=== PATIENT | female | born 1955 | race Caucasian/White ===

== ENCOUNTER 2017-04-26 11:47 | Inpatient (IN) | payer OTHER ==
[~2017-04-26] VITALS: Ht 165.1 cm; Wt 90.0 kg
[2017-04-26] VITALS (8 sets, daily range): BP systolic 128–233; BP diastolic 60–114; PULSE 76–98; RESP 16–19; TEMP 98.2–98.7; O2SAT 94–99
[2017-04-26] MEDS ORDERED: hydrALAZINE HCL 20 MG/ML VIAL IV PUSH ONE (12:15)
[2017-04-26] MEDS ORDERED: ONDANSETRON HCL 4 MG/2 ML VIAL IV PUSH ONE (12:15)
[2017-04-26 12:26] LABS: AUTOMATED NEUTROPHIL # 3.1 TH/MM3 (1.8-7.7); BASOPHIL # 0.1 TH/MM3 (0-0.2); BASOPHIL % 0.8 % (0.0-2.0); EOSINOPHIL # 0.2 TH/MM3 (0-0.4); EOSINOPHIL % 2.3 % (0.0-4.0); HEMATOCRIT 41.1 % (35.0-46.0); HEMO FLAGS DIFF FINAL; LYMPH % 41.3 % (9.0-44.0); LYMPHOCYTE # 2.8 TH/MM3 (1.0-4.8); MEAN CELL VOLUME 89.3 FL (80.0-100.0); MEAN CORPUSCULAR HEMOGLOBIN 31.1 PG (27.0-34.0); MEAN CORPUSCULAR HGB CONC 34.9 % (32.0-36.0); MONO % 9.5 % (0.0-8.0); NEUT % 46.1 % (16.0-70.0); PLATELET COUNT 290 TH/MM3 (150-450); RED CELL DISTRIBUTION WIDTH 13.1 % (11.6-17.2); WHITE BLOOD COUNT 6.7 TH/MM3 (4.0-11.0)
[2017-04-26 12:36] LABS: APTT (PATIENT) 26.8 SEC (24.3-30.1); INTERNATIONAL NORMALIZED RATIO 0.9 RATIO; PROTHROMBIN TIME - PATIENT 10.2 SEC (9.8-11.6)
--- NOTE | 2017-04-26 12:45 | PD ---
HPI Chief Complaint: Headache Time Seen by Provider: 11:59 Travel History International Travel<30 days: No Contact w/Intl Traveler<30days: No Traveled to known affect area: No History of Present Illness HPI 61yo F with PMH of HTN and Jeanne's thyroiditis presents to the ED with c/o bilateral frontal headache, blurry vision and elevated blood pressure after argument 1.5 hours prior to ED arrival. Associated with nausea. Denies any focal weakness or numbness, chest pain, sob, vomiting, abdominal pain, fever, cough or trauma. Had one episode of migraine when she was . PFSH Past Medical History Hypertension: Yes Influenza Vaccination: Yes Menopausal: Yes Past Surgical History Cholecystectomy: Yes (1997) Tonsillectomy: Yes (1960) Social History Alcohol Use: Yes (glass of wine 3x/month) Tobacco Use: No Substance Use: No Allergies-Medications (Allergen,Severity, Reaction): Coded Allergies: Levaquin (Verified Allergy, Mild, 01/26/07) Reported Meds & Prescriptions Reported Meds & Active Scripts Active Review of Systems Except as stated in HPI: all other systems reviewed are Neg Physical Exam Narrative GENERAL: 61yo F in mild distress. SKIN: Focused skin assessment warm/dry. HEAD: Atraumatic. Normocephalic. EYES: Pupils equal and round at 4mm bilaterally. No scleral icterus. No injection or drainage. ENT: No nasal bleeding or discharge. Mucous membranes pink and moist. NECK: Trachea midline. No JVD. CARDIOVASCULAR: Regular rate and rhythm. No murmur appreciated. RESPIRATORY: No accessory muscle use. Clear to auscultation. Breath sounds equal bilaterally. GASTROINTESTINAL: Abdomen soft, non-tender, nondistended. No rebound tenderness or guarding. MUSCULOSKELETAL: No obvious deformities. No clubbing. No cyanosis. No edema. NEUROLOGICAL: Awake and alert. No obvious cranial nerve deficits. Motor grossly within normal limits. Normal speech. PSYCHIATRIC: Appropriate mood and affect; insight and judgment normal. Data Data Last Documented VS Vital Signs Date Time Temp Pulse Resp B/P Pulse Ox O2 Delivery O2 Flow Rate FiO2 04/26/17 12:33 78 188/63 04/26/17 12:21 18 95 Room Air 04/26/17 11:[address] Brain W/O Iv Contrast(Rout) (04/26/17 ) Complete Blood Count With Diff (04/26/17 12:10) Basic Metabolic Panel (Bmp) (04/26/17 12:10) Prothrombin Time / Inr (Pt) (04/26/17 12:10) Act Partial Throm Time (Ptt) (04/26/17 12:10) Hydralazine Inj (Apresoline Inj) (04/26/17 12:15) Ondansetron Inj (Zofran Inj) (04/26/17 12:15) Cta Brain W Iv Contrast W 3d (04/26/17 ) Levetiracetam 1000 Mg Inj (Keppra 1000 M (04/26/17 13:30) Admit Order (Ed Use Only) (04/26/17 13:46) Labs Laboratory Tests Test 04/26/17 12:13 White Blood Count 6.7 TH/MM3 Red Blood Count 4.60 MIL/MM3 Hemoglobin 14.3 GM/DL Hematocrit 41.1 % Mean Corpuscular Volume 89.3 FL Mean Corpuscular Hemoglobin 31.1 PG Mean Corpuscular Hemoglobin 34.9 % Concent Red Cell Distribution Width 13.1 % Platelet Count 290 TH/MM3 Mean Platelet Volume 8.5 FL Neutrophils (%) (Auto) 46.1 % Lymphocytes (%) (Auto) 41.3 % Monocytes (%) (Auto) 9.5 % Eosinophils (%) (Auto) 2.3 % Basophils (%) (Auto) 0.8 % Neutrophils # (Auto) 3.1 TH/MM3 Lymphocytes # (Auto) 2.8 TH/MM3 Monocytes # (Auto) 0.6 TH/MM3 Eosinophils # (Auto) 0.2 TH/MM3 Basophils # (Auto) 0.1 TH/MM3 CBC Comment DIFF FINAL Differential Comment Prothrombin Time 10.2 SEC Prothromb Time International 0.9 RATIO Ratio Activated Partial 26.8 SEC Thromboplast Time Sodium Level 136 MEQ/L Potassium Level 3.9 MEQ/L Chloride Level 102 MEQ/L Carbon Dioxide Level 27.2 MEQ/L Anion Gap 7 MEQ/L Blood Urea Nitrogen 14 MG/DL Creatinine 0.92 MG/DL Estimat Glomerular Filtration 62 ML/MIN Rate Random Glucose 161 MG/DL Calcium Level 9.4 MG/DL Troponin I 0.03 NG/ML MDM Medical Decision Making Medical Screen Exam Complete: Yes Emergency Medical Condition: Yes Differential Diagnosis SAH vs. hypertensive bleed vs. migraine headache Narrative Course 61yo F with HTN and new onset frontal headache after argument today. Pt had blurry vision with the headache which is new for her. BP was markedly elevated at 233/114 on arrival and improved to 188/63 after hydralazine 10mg IV. Labs reviewed, no leukocytosis. BMP unremarkable. Coags normal. CT brain showed tiny amount of subarachnoid hemorrhage in right occipitoparietal region otherwise unremarkable. I added on CTA brain and CTA carotid and prophylactically given keppra 1000mg IV. Discussed with Dr. Bain who accepted the pt to the ICU. Discussed with NSX Dr. Ochoa as well. Critical Care Narrative Aggregate critical care time was 50 minutes. Time to perform other separately billable procedures was not included in the critical care time. My time did not include minutes spent treating any other patients simultaneously or on activities that did not directly contribute to the patient's treatment. The services I provided to this patient were to treat and/or prevent clinically significant deterioration that could result in: cardiovascular collapse or . I provided critical care services requiring my management, as noted below: Chart data review, documentation time, medication orders and management, vital sign assessments/reviewing monitor data, ordering and reviewing lab tests, ordering and interpreting/reviewing x-rays and diagnostic studies, care of the patient and discussion of the patient with the admitting physicians. Diagnosis Primary Impression: Subarachnoid hemorrhage Admitting Information Admitting Physician Requests: Niyah Fischer DO Apr 26, 2017 12:45
[2017-04-26 12:46] LABS: BICARBONATE 27.2 MEQ/L (21.0-32.0); POTASSIUM 3.9 MEQ/L (3.5-5.1)
--- NOTE | 2017-04-26 12:53 | RADRPT ---
EXAM DATE/TIME: 04/26/2017 12:40 [facility] COMPARISON: No previous studies available for comparison. INDICATIONS : Patient having high blood pressure,headache, dizziness since a verbal altercation this morning. RADIATION DOSE: 35.83 CTDIvol (mGy) MEDICAL HISTORY : Hypertension. SURGICAL HISTORY : Cholecystectomy. ENCOUNTER: Initial ACUITY: 1 day PAIN SCALE: 0/10 LOCATION: Bilateral cranial TECHNIQUE: Multiple contiguous axial images were obtained of the head. Using automated exposure control and adj ustment of the mA and/or kV according to patient size, radiation dose was kept as low as reasonably a chievable to obtain optimal diagnostic quality images. DICOM format image data is available electro nically for review and comparison. FINDINGS: CEREBRUM: There some linear areas of increased density in the right occipitoparietal region along the sulci champ picious for subarachnoid hemorrhage . It is minimal but on 4 consecutive images. The ventricles are normal for age. No evidence of midline shift, mass lesion, or acute infarction. No extra-axial flui d collections are seen. POSTERIOR FOSSA: The cerebellum and brainstem are intact. The 4th ventricle is midline. The cerebellopontine angle i s unremarkable. EXTRACRANIAL: The visualized portion of the orbits is intact. SKULL: The calvaria is intact. No evidence of skull fracture. CONCLUSION: Tiny amount of subarachnoid hemorrhage in the right occipitoparietal region otherwise unremarkable [facility]. Eduar Bauer MD on April 26, 2017 at 12:50 Board Certified Radiologist. This report was verified electronically.
[2017-04-26] MEDS ORDERED: levETIRAcetam 1000 MG INJ 100 ML IV ONE (13:30)
--- NOTE | 2017-04-26 14:11 | PD.CONS ---
History of Present Illness Service Neurosurgery Consult Requested By Emergency room-Dr. Nguyen Reason for Consult Subarachnoid hemorrhage. Hypertension Primary Care Physician Minda Austin MD Diagnoses: History of Present Illness 61-year-old female with onset of severe frontal headache 1-2 hours prior to evaluation in the emergency room. Noted to be hypertensive with systolic blood pressure 220s. Nausea without emesis. No seizure activity reported. No other recent headaches or neurologic symptoms. No pain, weakness, numbness or paresthesias in the extremities. No blurred vision or diplopia speech difficulty. No recent fevers or chills. Review of Systems Constitutional: DENIES: Fatigue, Fever Eyes: DENIES: Blurred vision, Diplopia Ears, nose, mouth, throat: DENIES: Vertigo Respiratory: DENIES: Shortness of breath Cardiovascular: DENIES: Chest pain, Palpitations Gastrointestinal: COMPLAINS OF: Nausea, DENIES: Abdominal pain Musculoskeletal: DENIES: Joint pain, Muscle aches Hematologic/lymphatic: DENIES: Bruising Neurologic: COMPLAINS OF: Headache, DENIES: Abnormal gait Psychiatric: DENIES: Anxiety, Confusion Past Family Social History Allergies: Coded Allergies: Levaquin (Verified Allergy, Mild, 01/26/07) Past Medical History Hypertension Jeanne's thyroiditis Past Surgical History Cholecystectomy Tonsillectomy Reported Medications Patient states that she takes Benazapril. Also a new medication for Jeanne' s thyroiditis, she does not recall the name. Reported Meds & Active Scripts Active Family History Positive for hypertension in her mother. Social History She smoked cigarettes many years ago. Drinks alcohol infrequently Physical Exam Vital Signs Vital Signs Date Time Temp Pulse Resp B/P Pulse Ox O2 Delivery O2 Flow Rate FiO2 04/26/17 12:33 78 188/63 04/26/17 12:21 81 18 95 Room Air 04/26/17 11:49 98.3 83 17 233/114 98 Physical Exam GENERAL: This is a well-nourished, well-developed patient, appears moderately uncomfortable. SKIN: No rashes, ecchymoses or lesions. Cool and dry. HEAD: Atraumatic. Normocephalic. No temporal or scalp tenderness. EYES: Sclerae are clear and nonicteric ENT: No facial edema or ecchymosis. Oropharynx clear NECK: Trachea midline. No JVD or lymphadenopathy. Supple, nontender, no meningeal signs. CARDIOVASCULAR: Regular rate and rhythm without murmurs, gallops, or rubs. RESPIRATORY: Clear to auscultation. Breath sounds equal bilaterally. No wheezes , rales, or rhonchi. GASTROINTESTINAL: Abdomen soft, non-tender, nondistended. No hepato-splenomegaly , or palpable masses. No guarding. MUSCULOSKELETAL: Extremities without clubbing, cyanosis, or edema. No joint tenderness, effusion, or edema noted. No calf tenderness. No long bone or joint deformity. Posterior tibial pulse 2+ bilateral NEUROLOGICAL: Awake and alert Oriented X 3 Speech is clear Conversant and appropriate Follow simple commands well Answers questions appropriately Reasonable judgment and insight Recent and remote memory are intact No evidence of anxiety or depression Pupils are equal and reactive to accommodation. Extra-ocular movements, visual villa to confrontation, facial sensorimotor, tongue, palate, sternocleidomastoid testing, hearing to finger rub testing, and bilateral shoulder shrug are all intact. Sensation is intact to light touch in all extremities Strength normal major flexion and extension groups all extremities Ana's absent bilaterally No ankle clonus Plantar responses absent bilateral Fine motor movements intact upper extremities Laboratory Laboratory Tests Test 04/26/17 12:13 White Blood Count 6.7 Red Blood Count 4.60 Hemoglobin 14.3 Hematocrit 41.1 Mean Corpuscular Volume 89.3 Mean Corpuscular Hemoglobin 31.1 Mean Corpuscular Hemoglobin 34.9 Concent Red Cell Distribution Width 13.1 Platelet Count 290 Mean Platelet Volume 8.5 Neutrophils (%) (Auto) 46.1 Lymphocytes (%) (Auto) 41.3 Monocytes (%) (Auto) 9.5 Eosinophils (%) (Auto) 2.3 Basophils (%) (Auto) 0.8 Neutrophils # (Auto) 3.1 Lymphocytes # (Auto) 2.8 Monocytes # (Auto) 0.6 Eosinophils # (Auto) 0.2 Basophils # (Auto) 0.1 CBC Comment DIFF FINAL Differential Comment Prothrombin Time 10.2 Prothromb Time International 0.9 Ratio Activated Partial 26.8 Thromboplast Time Sodium Level 136 Potassium Level 3.9 Chloride Level 102 Carbon Dioxide Level 27.2 Anion Gap 7 Blood Urea Nitrogen 14 Creatinine 0.92 Estimat Glomerular Filtration 62 Rate Random Glucose 161 Calcium Level 9.4 Result Diagram: 04/26/17 1213 04/26/17 1213 Imaging 04/26/17 CT scan head images reviewed by the undersigned. Agree with findings as noted below: Head CT 04/26/17 0000 Signed Impressions: Service Date/Time: Wednesday, April 26, 2017 12:40 - CONCLUSION: Tiny amount of subarachnoid hemorrhage in the right occipitoparietal region otherwise unremarkable study. Eduar Bauer MD Laboratory Tests Test 04/26/17 12:13 White Blood Count 6.7 TH/MM3 Red Blood Count 4.60 MIL/MM3 Hemoglobin 14.3 GM/DL Hematocrit 41.1 % Mean Corpuscular Volume 89.3 FL Mean Corpuscular Hemoglobin 31.1 PG Mean Corpuscular Hemoglobin 34.9 % Concent Red Cell Distribution Width 13.1 % Platelet Count 290 TH/MM3 Mean Platelet Volume 8.5 FL Neutrophils (%) (Auto) 46.1 % Lymphocytes (%) (Auto) 41.3 % Monocytes (%) (Auto) 9.5 % Eosinophils (%) (Auto) 2.3 % Basophils (%) (Auto) 0.8 % Neutrophils # (Auto) 3.1 TH/MM3 Lymphocytes # (Auto) 2.8 TH/MM3 Monocytes # (Auto) 0.6 TH/MM3 Eosinophils # (Auto) 0.2 TH/MM3 Basophils # (Auto) 0.1 TH/MM3 CBC Comment DIFF FINAL Differential Comment Prothrombin Time 10.2 SEC Prothromb Time International 0.9 RATIO Ratio Activated Partial 26.8 SEC Thromboplast Time Sodium Level 136 MEQ/L Potassium Level 3.9 MEQ/L Chloride Level 102 MEQ/L Carbon Dioxide Level 27.2 MEQ/L Anion Gap 7 MEQ/L Blood Urea Nitrogen 14 MG/DL Creatinine 0.92 MG/DL Estimat Glomerular Filtration 62 ML/MIN Rate Random Glucose 161 MG/DL Calcium Level 9.4 MG/DL Assessment and Plan Assessment and Plan Impression: 1. Small right parieto-occipital convexity subarachnoid hemorrhage. Likely hypertensive, but need to assess for focal watershed region hemorrhagic CVA. 2. Hypertension 3. History of Jeanne's thyroiditis Recommendations: Discussed with mail processing machine operator Discussed with emergency room physician Begin Cardene for additional blood pressure control. Keep blood pressure 120- 140 range of present. Due to the location of the hemorrhage, an MRI and MRA of the brain would be helpful to assess for possible hemorrhagic CVA. However the patient states that she is very claustrophobic, does not feel that she can make it through an MRI without conscious sedation. We will thus proceed with CT angiogram of the brain to assess for cerebrovascular disease or occlusion, assess for aneurysm or vascular malformation. May need adjustment of blood pressure control range depending on CT angiogram results. Intensive care admission Close neurologic checks and vital signs Given small degree of subarachnoid hemorrhage and non-aneurysmal nature of the bleed, will not begin nimodipine at this time. Joni Ochoa MD Apr 26, 2017 14:11
[2017-04-26] MEDS ORDERED: CHLORHEXIDINE GLUCONATE 2 % 1 PACK (2 CLOTHS) TOP PRN (14:15)
[2017-04-26] MEDS ORDERED: LORazepam 2 MG/ML VIAL IV PRN (14:15)
[2017-04-26] MEDS ORDERED: SODIUM CHLORIDE 0.9% FLUSH 10 ML FLUSH IV FLUSH PRN (14:15)
[2017-04-26] MEDS ORDERED: MISCELLANEOUS NURSING INFORMATION XX SCH (14:15)
[2017-04-26] MEDS ORDERED: ACETAMINOPHEN/HYDROcodone 325 MG/5 MG TAB PO PRN (14:15)
[2017-04-26] MEDS ORDERED: MORPHINE SULFATE 4 MG/ML INJ IV PRN (14:15)
--- NOTE | 2017-04-26 14:27 | HHI.HP ---
[facility] Service Critical Care Medicine Primary Care Physician Minda Austin MD Admission Diagnosis Subarachnoid hemorrhage Diagnosis: (1) Subarachnoid hemorrhage Diagnosis: Principal (2) H/O Jeanne thyroiditis Diagnosis: Principal (3) History of hypertension Diagnosis: Principal (4) Hyperglycemia Diagnosis: Principal (5) Blurry vision, bilateral Diagnosis: Principal (6) Pressure in chest Diagnosis: Principal (7) Hypertensive emergency, no CHF Diagnosis: Principal Chief Complaint: Blurry vision/bilateral frontal headache 1.5 hours post argument with significant other Travel History International Travel<30 Days: No Contact w/Intl Traveler <30 Da: No Traveled to Known Affected Are: No History of Present Illness This is a 61-year-old female. Date of admission 04/26/2017. Past records includes Jeanne thyroiditis and hypertension. She is recently lost weight has been recently discontinued her Coreg is currently on benazepril. She presents to [facility] with onset of severe bilateral frontal headache 1 -2 hours prior to evaluation in the emergency room. These are described as sharp/throbbing associated with blurry vision. No other focal neurological deficit. No cranial nerve deficits. Denied paresthesias. She was also noted to be hypertensive with systolic blood pressure 220s. She received 10 mg hydralazine 1 for BP management. Current symptoms hematology includes Nausea without emesis. No seizure activity reported. No other recent headaches or neurologic symptoms. Remote migraine history: The patient. No pain, numbness or paresthesias in the extremities. No recent illnesses or sick contacts. No nuchal rigidity. CT brain revealed possibly right occipitoparietal subarachnoid hemorrhage tiny. Patient was evaluated by neurosurgery Dr. Ochoa who recommended MRIs of the brain along with MRA of the brain rule out hemorrhagic CVA. At the present time however recommended blood pressure with systolic blood pressure was 140. He did not recommend nimodipine in light of non-aneurysmal aneurysm/size of bleeding at the present time. Review of Systems Constitutional: COMPLAINS OF: Fatigue, Weight loss, Dizziness, DENIES: Fever, Weight gain Endocrine: DENIES: Polydipsia, Polyuria Eyes: COMPLAINS OF: Blurred vision, DENIES: Diplopia, Eye pain, Vision loss, Double Vision Ears, nose, mouth, throat: DENIES: Tinnitus, Running Nose Respiratory: DENIES: Apneas, Shortness of breath Cardiovascular: COMPLAINS OF: Chest pain, DENIES: Palpitations, Syncope, Lower Extremity Edema Gastrointestinal: COMPLAINS OF: Nausea, Vomiting, DENIES: Abdominal pain Genitourinary: DENIES: Urinary frequency, Urinary incontinence Musculoskeletal: DENIES: Joint pain, Neck pain Integumentary: DENIES: Pruritus, Rash Hematologic/lymphatic: DENIES: Bruising Immunologic/allergic: DENIES: Eczema Neurologic: COMPLAINS OF: Headache, DENIES: Abnormal gait, Localized weakness , Seizures Psychiatric: COMPLAINS OF: Anxiety, DENIES: Confusion, Depression Past Family Social History Allergies: Coded Allergies: Levaquin (Verified Allergy, Mild, 01/26/07) Past Medical History Jeanne thyroiditis by history Hypertension Past Surgical History Cholecystectomy T&A Reported Medications Benazepril unknown dosage daily. Active Ordered Medications Reviewed in EMR Family History Significant for cancer, hypertension, heart disease in both sides her family. Social History Consumes 3 glasses of rob per month. Denies tobacco or IV drug use. Physical Exam Vital Signs Vital Signs Date Time Temp Pulse Resp B/P Pulse Ox O2 Delivery O2 Flow Rate FiO2 04/26/17 12:33 78 188/63 04/26/17 12:21 81 18 95 Room Air 04/26/17 11:49 98.3 83 17 233/114 98 Physical Exam GENERAL: 61-year-old female, critically ill currently resting in bed with washcloth over her eyes in no acute distress SKIN: Warm and dry. No rash HEAD: Atraumatic. Normocephalic. EYES: Pupils equal and round about 2 mm bilaterally and reactive. No scleral icterus. No injection or drainage. ENT: No nasal bleeding or discharge. Mucous membranes pink and moist. Oropharynx without erythema or exudates NECK: Trachea midline. No JVD. CARDIOVASCULAR: Regular rate and rhythm. S1, S2. No S4. Without murmur RESPIRATORY: Clear to auscultation. Breath sounds equal bilaterally. GASTROINTESTINAL: Abdomen soft, non-tender, nondistended. Hypoactive bowel sounds are appreciated MUSCULOSKELETAL: Extremities without noted in peripheral edema. No obvious deformities. NEUROLOGICAL: Awake and alert. Recent states blurry vision but able to tell me that they're 1, 2 and 3 fingers in both eye villa. Motor grossly within normal limits. Five out of 5 muscle strength in the arms and legs. Normal speech. PSYCHIATRIC: Appropriate mood and affect; insight and judgment normal. Laboratory Laboratory Tests Test 04/26/17 12:13 White Blood Count 6.7 Red Blood Count 4.60 Hemoglobin 14.3 Hematocrit 41.1 Mean Corpuscular Volume 89.3 Mean Corpuscular Hemoglobin 31.1 Mean Corpuscular Hemoglobin 34.9 Concent Red Cell Distribution Width 13.1 Platelet Count 290 Mean Platelet Volume 8.5 Neutrophils (%) (Auto) 46.1 Lymphocytes (%) (Auto) 41.3 Monocytes (%) (Auto) 9.5 Eosinophils (%) (Auto) 2.3 Basophils (%) (Auto) 0.8 Neutrophils # (Auto) 3.1 Lymphocytes # (Auto) 2.8 Monocytes # (Auto) 0.6 Eosinophils # (Auto) 0.2 Basophils # (Auto) 0.1 CBC Comment DIFF FINAL Differential Comment Prothrombin Time 10.2 Prothromb Time International 0.9 Ratio Activated Partial 26.8 Thromboplast Time Sodium Level 136 Potassium Level 3.9 Chloride Level 102 Carbon Dioxide Level 27.2 Anion Gap 7 Blood Urea Nitrogen 14 Creatinine 0.92 Estimat Glomerular Filtration 62 Rate Random Glucose 161 Calcium Level 9.4 Result Diagram: 04/26/17 1213 04/26/17 1213 Imaging Last [address] 04/26/17 0000 Signed Impressions: Service Date/Time: Wednesday, April 26, 2017 12:40 - CONCLUSION: Tiny amount of subarachnoid hemorrhage in the right occipitoparietal region otherwise unremarkable study. Eduar Bauer MD Assessment and Plan Assessment and Plan Neuro/Psych: Small right parieto-occipital convexity non-aneurysmal subarachnoid hemorrhage. Likely hypertensive CT head revealed small right occipital parietal hemorrhage likely subarachnoid. MRI/MRA brain preferred to rule out watershed CVA however patient claustrophobic therefore CTA ordered. Negative for aneurysm bleed. Recommending goal systolic blood pressure less than 140. Neurochecks Dr. Ochoa/neurosurgery following CV: Hypertensive emergency Patient is on benazepril unknown dosage at home for hypertension. EKG/troponin pending On labetalol, hydralazine and as needed Cardene drip to maintain systolic blood pressure than 140 the present time in light of likely subarachnoid hemorrhage. Adjust BP goals depending on results of MRI brain On normal saline at 84 cc an hour. Resp: Nasal cannula to maintain saturations greater than equal to 92% Incentive spirometry while awake GI: Patient is currently nothing by mouth pending imaging as above Per Pepcid for GI prophylaxis Karli-Colace for bowel regimen : Calderón catheter currently not indicated Endo: Hyperglycemia Sliding-scale insulin to maintain euglycemia/low regimen every before meals at bedtime Renal: Creatinine currently within normal limits Accurate I's and O's BMP in a.m. Heme: CBCs and coags within normal limits No indications for transfusion of blood process at this time ID: Monitor for infection MSK: PT evaluate and treat FEN: Replace electrolytes as clinically indicated Access - Utilize peripheral IV. Central line if indicated Prophylaxis - GI - Pepcid - DVT - SCD/pharmacological prophylaxis contraindicated with hemorrhagic bleed Level III admission Code Status Full code Discussed Condition With Patient. Care plan discussed all questions answered. Ricky Bain MD Apr 26, 2017 14:27
[2017-04-26] MEDS ORDERED: GLUCAGON 1 MG/ML VIAL OTHER PRN (14:30)
[2017-04-26] MEDS ORDERED: DEXTROSE 50% IN WATER 50 ML VIAL(D50) IV PRN (14:30)
[2017-04-26] MEDS: niCARdipine INJ 25 MG in SODIUM CHLOR 0.9% 250 ML INJ 250 ML IV SCH ×2 (14:38→22:17)
[2017-04-26] MEDS ORDERED: IOHEXOL 350 MG/ML 10 ML VIAL (for RAD DIAG) IV ONE (14:49)
[2017-04-26] MEDS ORDERED: ACETAMINOPHEN 325 MG TAB PO PRN (15:00)
[2017-04-26] MEDS ORDERED: LACTULOSE SYRUP 20 GM/30 ML CUP PO PRN (15:00)
[2017-04-26] MEDS ORDERED: ENALAPRILAT 1.25 MG/ML VIAL IV PUSH PRN (15:00)
[2017-04-26] MEDS ORDERED: BISACODYL 10 MG SUPP RECTAL PRN (15:00)
[2017-04-26] MEDS: SODIUM CHLOR 0.9% 1000 ML INJ 1,000 ML IV SCH ×2 (15:19→17:39)
--- NOTE | 2017-04-26 15:37 | RADRPT ---
EXAM DATE/TIME: 04/26/2017 14:20 [facility] COMPARISON: CT BRAIN W/O CONTRAST, April 26, 2017, 12:40. INDICATIONS : Abnormal CT brain. IV CONTRAST: 85 cc Omnipaque 350 (iohexol) IV ; Cumulative dose for multiple exams. RADIATION DOSE: 16.27 CTDIvol (mGy) ; Combined studies MEDICAL HISTORY : Hypertension. SURGICAL HISTORY : Cholecystectomy. ENCOUNTER: Initial ACUITY: 1 day PAIN SCALE: 7/10 LOCATION: Bilateral head TECHNIQUE: Volumetric scanning was performed using a multi-row detector CT scanner. The data was post processed with a variety of visualization algorithms including full volume maximum intensity projection, multi -planar sliding thin slab reformation, curved planar reformation, and surface rendering techniques. Using automated exposure control and adjustment of the mA and/or kV according to patient size, radiat ion dose was kept as low as reasonably achievable to obtain optimal diagnostic quality images. DICO M format image data is available electronically for review and comparison. FINDINGS: There is excellent visualization of the major intracranial arteries out to the second-order branch ve ssels. There is no evidence for aneurysm, vessel truncation or stenosis, and no evidence for vascula r malformation. CONCLUSION: Negative exam. Intracranial vessels are patent without aneurysmal disease. Subhash Sheehan MD on April 26, 2017 at 15:31 Board Certified Radiologist. This report was verified electronically.
--- NOTE | 2017-04-26 15:41 | RADRPT ---
EXAM DATE/TIME: 04/26/2017 14:20 [place] COMPARISON: No previous studies available for comparison. INDICATIONS : Abdnormal CT brain. IV CONTRAST: 85 cc Omnipaque 350 (iohexol) IV ; Cumulative dose for multiple exams. RADIATION DOSE: 16.27 CTDIvol (mGy) ; Combined studies MEDICAL HISTORY : Hypertension. SURGICAL HISTORY : Cholecystectomy. ENCOUNTER: Initial ACUITY: 1 day PAIN SCALE: 0/10 LOCATION: Bilateral neck Elevated flow velocities and ICA/CCA ratios have been found to correlate with increased degrees of vessel stenosis, calculated as percentage of diameter relative to a normal segment of distal ICA/CCA. TECHNIQUE: Volumetric scanning was performed using a multirow detector CT scanner. The data was post processed with a variety of visualization algorithms including full-volume maximum intensity projection, multip lanar sliding thin-slab reformation, curved-planar reformation, and surface-rendering techniques. Us ing automated exposure control and adjustment of the mA and/or kV according to patient size, radiatio n dose was kept as low as reasonably achievable to obtain optimal diagnostic quality images. DICOM f ormat image data is available electronically for review and comparison. FINDINGS: AORTIC ARCH: There is a three-vessel origin of the great vessels from the aorta. No evidence of ostial narrowing. RIGHT CAROTID: The common carotid artery is intact. The carotid bulb has a normal configuration without ulceration o r narrowing. Mild, scattered calcification of the internal with no significant stenosis. The externa l carotid artery is intact. LEFT CAROTID: The common carotid artery is intact. The carotid bulb has a normal configuration without ulceration or narrowing mild, scattered atherosclerotic calcification of the internal with no significant stenos is. The external carotid artery is intact. VERTEBRALS: The vertebral arteries have a symmetric diameter. No stenotic lesions are seen. CONCLUSION: 1. There is some atherosclerotic calcification of the internal bilaterally. However, the carotids and vertebrals are patent throughout. 2. Nodularity and irregularity of the thyroid gland probably representing multinodular goiter. Subhash Sheehan MD on April 26, 2017 at 15:36 Board Certified Radiologist. This report was verified electronically.
[2017-04-26] MEDS: INSULIN NovoLIN REGULAR SUPPLEMENTAL SCALE SQ SCH ×2 (16:00→21:20)
[2017-04-26] MEDS: ARTIFICIAL TEARS OPTH SOLN 15 ML BTL EACH EYE SCH (17:39)
[2017-04-26] MEDS ORDERED: ONDANSETRON HCL 4 MG/2 ML VIAL IV PRN (18:00)
[2017-04-26 18:32] LABS: FREE T3 3.01 PG/ML (2.18-3.98); FREE T4 1.2 NG/DL (0.76-1.46)
[2017-04-26] MEDS ORDERED: SENNOSIDES 8.6 MG TAB PO PRN (21:00)
[2017-04-26] MEDS ORDERED: MAGNESIUM HYDROXIDE SUSP 30 ML CUP PO PRN (21:00)
[2017-04-26] MEDS: DOCUSATE SODIUM 50 MG/SENNA 8.6 MG TAB PO SCH (21:20)
[2017-04-26] MEDS: SODIUM CHLORIDE 0.9% FLUSH 10 ML FLUSH IV FLUSH SCH (21:20)
[2017-04-26] MEDS: FAMOTIDINE 20 MG/2 ML VIAL IV PUSH SCH (21:20)
[2017-04-27] VITALS (12 sets, daily range): BP systolic 104–157; BP diastolic 57–78; PULSE 61–77; RESP 12–20; TEMP 98–98.7; O2SAT 92–98
[2017-04-27] MEDS: CHLORHEXIDINE GLUCONATE 2 % 1 PACK (2 CLOTHS) TOP SCH (04:00)
[2017-04-27 04:48] LABS: APTT (PATIENT) 26.4 SEC (24.3-30.1); AUTOMATED NEUTROPHIL # 6.1 TH/MM3 (1.8-7.7); BASOPHIL % 0.4 % (0.0-2.0); EOSINOPHIL # 0.1 TH/MM3 (0-0.4); EOSINOPHIL % 1.4 % (0.0-4.0); HEMATOCRIT 37.7 % (35.0-46.0); HEMO FLAGS DIFF FINAL; LYMPH % 29.6 % (9.0-44.0); MEAN CORPUSCULAR HEMOGLOBIN 31.4 PG (27.0-34.0); MEAN CORPUSCULAR HGB CONC 34.8 % (32.0-36.0); MONO % 8.3 % (0.0-8.0); NEUT % 60.3 % (16.0-70.0); PLATELET COUNT 276 TH/MM3 (150-450); PROTHROMBIN TIME - PATIENT 10.7 SEC (9.8-11.6); RED BLOOD COUNT 4.18 MIL/MM3 (4.00-5.30); RED CELL DISTRIBUTION WIDTH 13.3 % (11.6-17.2); WHITE BLOOD COUNT 10.1 TH/MM3 (4.0-11.0)
[2017-04-27 04:49] LABS: APTT (PATIENT) 25.7 SEC (24.3-30.1)
[2017-04-27] MEDS: SODIUM CHLOR 0.9% 1000 ML INJ 1,000 ML IV SCH (05:05)
[2017-04-27 05:11] LABS: ALT (GPT) 55 U/L (10-53); ANION GAP 9 MEQ/L (5-15); AST (GOT) 27 U/L (15-37); BICARBONATE 26.1 MEQ/L (21.0-32.0); BLOOD UREA NITROGEN 12 MG/DL (7-18); CHLORIDE 104 MEQ/L (98-107); GLOMERULAR FILTRATION RATE 72 ML/MIN (>89); MAGNESIUM 1.9 MG/DL (1.5-2.5); POTASSIUM 3.3 MEQ/L (3.5-5.1); SODIUM (NA) 139 MEQ/L (136-145)
[2017-04-27 05:15] LABS: ALKALINE PHOSPHATASE 51 U/L (45-117); TOTAL BILIRUBIN ADULT 0.5 MG/DL (0.2-1.0)
[2017-04-27] MEDS: INSULIN NovoLIN REGULAR SUPPLEMENTAL SCALE SQ SCH ×4 (07:00→21:11)
--- NOTE | 2017-04-27 08:54 | HHI.CCPN ---
Subjective Remarks/Hospital Course This is a 61-year-old female. Date of admission 04/26/2017. Past records includes Jeanne thyroiditis and hypertension. She is recently lost weight has been recently discontinued her Coreg is currently on benazepril. She presents to [facility] with onset of severe bilateral frontal headache 1 -2 hours prior to evaluation in the emergency room. These are described as sharp/throbbing associated with blurry vision. No other focal neurological deficit. No cranial nerve deficits. Denied paresthesias. She was also noted to be hypertensive with systolic blood pressure 220s. She received 10 mg hydralazine 1 for BP management. Current symptoms hematology includes Nausea without emesis. No seizure activity reported. No other recent headaches or neurologic symptoms. Remote migraine history: The patient. No pain, numbness or paresthesias in the extremities. No recent illnesses or sick contacts. No nuchal rigidity. CT brain revealed possibly right occipitoparietal subarachnoid hemorrhage tiny. Patient was evaluated by neurosurgery Dr. Ochoa who recommended MRIs of the brain along with MRA of the brain rule out hemorrhagic CVA. At the present time however recommended blood pressure with systolic blood pressure was 140. He did not recommend nimodipine in light of non-aneurysmal aneurysm/size of bleeding at the present time. Subjective: 04/27: Symptomatology of blurry vision, and nausea resolved. Patient alert and oriented with no complaints this morning. Nicardipine infusion discontinued at 12 MN, patient's blood pressure has remained with a systolic with then 120 140 mmHg. Plan to resume benazepril this a.m.. Patient continues on a clear liquid diet will advance as tolerated. Plan for out of bed to chair this a.m.. Objective Vital Signs Date Time Temp Pulse Resp B/P Pulse Ox O2 Delivery O2 Flow Rate FiO2 04/27/17 07:45 98 Nasal Cannula 2.00 04/27/17 04:00 98.4 61 17 109/58 Intake and Output 04/26/17 04/26/17 04/27/17 08:00 16:00 00:00 Intake Total 1024 ml Output Total 0 ml Balance 1024 ml Result Diagram: 04/27/17 0420 04/27/17 0420 Imaging Last [address] 04/26/17 0000 Signed Impressions: Service Date/Time: Wednesday, April 26, 2017 12:40 - CONCLUSION: Tiny amount of subarachnoid hemorrhage in the right occipitoparietal region otherwise unremarkable study. Eduar Bauer MD Objective Remarks GENERAL: 61-year-old female, alert and responsive in no acute distress SKIN: Warm and dry. No rash HEAD: Atraumatic. Normocephalic. EYES: Pupils equal and round about 2 mm bilaterally and reactive. No scleral icterus. No injection or drainage. ENT: No nasal bleeding or discharge. Mucous membranes pink and moist. Oropharynx without erythema or exudates NECK: Trachea midline. No JVD. CARDIOVASCULAR: Regular rate and rhythm. S1, S2. No S4. Without murmur RESPIRATORY: Clear to auscultation. Breath sounds equal bilaterally. GASTROINTESTINAL: Abdomen soft, non-tender, nondistended. Hypoactive bowel sounds are appreciated MUSCULOSKELETAL: Extremities without noted in peripheral edema. No obvious deformities. NEUROLOGICAL: Awake and alert. No visual field defects. Motor grossly within normal limits.5/ 5 muscle strength in the arms and legs. Normal speech. PSYCHIATRIC: Appropriate mood and affect; insight and judgment normal. Urinary Catheter: No A/P Assessment and Plan Neuro/Psych: Small right parieto-occipital convexity non-aneurysmal subarachnoid hemorrhage. Likely hypertensive CT head revealed small right occipital parietal hemorrhage likely subarachnoid. 04/26:MRI/MRA brain preferred to rule out watershed CVA however patient claustrophobic therefore CTA ordered. Negative for aneurysm bleed. Recommending goal systolic blood pressure less than 140. Neurochecks Dr. Ochoa/neurosurgery following CV: Hypertensive emergency Patient is on benazepril unknown dosage at home for hypertension, will resume this a.m., family member bringing in prescriptions for reconciliation EKG/troponin On labetalol, hydralazine and as needed. Cardene infusion off since 12MN Maintain systolic blood pressure 120-140 the present time in light of likely subarachnoid hemorrhage. Adjust BP goals depending on results of MRI brain On normal saline at 84 cc an hour. Resp: Nasal cannula to maintain saturations greater than equal to 92% Incentive spirometry while awake GI: Patient is currently nothing by mouth pending imaging as above Per Pepcid for GI prophylaxis Karli-Colace for bowel regimen : Calderón catheter currently not indicated Endo: Hyperglycemia Sliding-scale insulin to maintain euglycemia/low regimen every before meals at bedtime Renal: Creatinine currently within normal limits Accurate I's and O's BMP in a.m. Heme: CBCs and coags within normal limits No indications for transfusion of blood process at this time ID: Monitor for infection MSK: PT evaluate and treat FEN: Replace electrolytes as clinically indicated Access - Utilize peripheral IV. Central line if indicated Prophylaxis - GI - Pepcid - DVT - SCD/pharmacological prophylaxis contraindicated with hemorrhagic bleed Level 2 planned advancement out of bed, to bedside commode and chair. Resumption of antihypertensive home medications benazepril. [facility] Dispo: Discussed with patient, and TABLE KEEPER at bedside Physician Renay Galo MD Apr 27, 2017 08:54
[2017-04-27] MEDS: ARTIFICIAL TEARS OPTH SOLN 15 ML BTL EACH EYE SCH ×3 (09:00→16:46)
--- NOTE | 2017-04-27 09:18 | HHI.NSPN ---
(Steve Parkinson) History Chief Complaint: No complaints this morning (Steve Parkinson) Interval History 04/26: 61-year-old female with onset of severe frontal headache 1-2 hours prior to evaluation in the emergency room. Noted to be hypertensive with systolic blood pressure 220s. Nausea without emesis. No seizure activity reported. No other recent headaches or neurologic symptoms. No pain, weakness, numbness or paresthesias in the extremities. No blurred vision or diplopia speech difficulty. No recent fevers or chills. 04/27: Patient awake when seen this morning and states that she is doing good. She had no complaints. She had tolerated a clear liquid diet. She did endorse a headache, nausea and visual problems yesterday but none today. Yesterday afternoon she had a CTA brain & neck were unremarkable for any aneurysmal disease and demonstrated patent carotids & vertebrals throughout. There was an incidental finding of a probable multinodular goiter. (Steve Parkinson) System Review Comments Constitutional: Patient denies any fever or chills. HEENT: Patient denies any blurry or double vision or other visual difficulty. Respiratory: Patient denies any shortness of breath or productive cough. Cardiovascular: Patient denies any chest pain, palpitations or irregular heartbeat. Gastrointestinal: Patient denies any abdominal pain, nausea, vomiting or incontinence of stool. Genitourinary: Patient denies any incontinence of urine. Musculoskeletal: Patient denies any pain or weakness to the arms or legs. She denies any neck pain or pain with movement. Neurologic: Patient denies any headache, dizziness, numbness or tingling. ( Steve Parkinson) Exam Results Vital Signs Date Time Temp Pulse Resp B/P Pulse Ox O2 Delivery O2 Flow Rate FiO2 04/27/17 07:45 98 Nasal Cannula 2.00 04/27/17 04:00 98.4 61 17 109/58 Intake and Output 04/26/17 04/26/17 04/27/17 08:00 16:00 00:00 Intake Total 1024 ml Output Total 0 ml Balance 1024 ml (Steve Parkinson) Physical Examination GENERAL: Patient appears comfortable, readily smiles & interacts, normal affect. HEENT: Normocephalic, atraumatic. NECK: Midline cervical spine NTTP, no nuchal rigidity, no JVD, trachea midline. CARDIOVASCULAR: S1S2 w/RRR w/o M/G/R, radial & pedal pulses 2+ bilaterally, cap refill < 2 sec, no pedal edema. Monitor is sinus rhythm w/o any evident ectopy. RESPIRATORY: CTAB w/o W/R/R, equal excursion, nonlaboured, on RA. GASTROINTESTINAL: Abdomen soft, nontender, positive bowel sounds. MUSCULOSKELETAL: RAMOS w/o difficulty, no evident deformities or clubbing noted. INTEGUMENTARY: Warm, dry & intact, w/o any evident discolouration, lesions, ulcerations or rashes. NEUROLOGICAL: AAOx3 Speech clear & appropriate Follows simple commands w/o difficulty CN II-XII grossly intact Sensation intact to light touch to all extremities Motor strength 5/5 to all major flexion & extension muscle groups (Steve Parkinson) Lab, Micro, Other Results Allergies Coded Allergies Type Severity Reaction Last Updated Verified Levaquin Allergy Mild 01/26/07 Yes Recent Impressions Neck CTA 04/26/17 0000 Signed Impressions: Service Date/Time: Wednesday, April 26, 2017 14:20 - CONCLUSION: 1. There is some atherosclerotic calcification of the internal bilaterally. However, the carotids and vertebrals are patent throughout. 2. Nodularity and irregularity of the thyroid gland probably representing multinodular goiter. Subhash Sheehan MD Head CTA 04/26/17 0000 Signed Impressions: Service Date/Time: Wednesday, April 26, 2017 14:20 - CONCLUSION: Negative exam. Intracranial vessels are patent without aneurysmal disease. Subhash Sheehan MD Head CT 04/26/17 0000 Signed Impressions: Service Date/Time: Wednesday, April 26, 2017 12:40 - CONCLUSION: Tiny amount of subarachnoid hemorrhage in the right occipitoparietal region otherwise unremarkable study. Eduar Bauer MD 06:00 18:00 06:00 18:00 06:00 18:00 Intake Total 1831 ml Output Total 1000 ml Balance 831 ml Intake Oral 240 ml IV Total 1591 ml Output Urine Total 1000 ml Stool Total 0 ml # Voids 1 # Bowel Movements 0 Laboratory Tests Test 04/26/17 04/26/17 04/27/17 12:13 17:54 04:20 White Blood Count 6.7 TH/MM3 10.1 TH/MM3 Red Blood Count 4.60 MIL/MM3 4.18 MIL/MM3 Hemoglobin 14.3 GM/DL 13.1 GM/DL Hematocrit 41.1 % 37.7 % Mean Corpuscular Volume 89.3 FL 90.0 FL Mean Corpuscular Hemoglobin 31.1 PG 31.4 PG Mean Corpuscular Hemoglobin 34.9 % 34.8 % Concent Red Cell Distribution Width 13.1 % 13.3 % Platelet Count 290 TH/MM3 276 TH/MM3 Mean Platelet Volume 8.5 FL 8.3 FL Neutrophils (%) (Auto) 46.1 % 60.3 % Lymphocytes (%) (Auto) 41.3 % 29.6 % Monocytes (%) (Auto) 9.5 % 8.3 % Eosinophils (%) (Auto) 2.3 % 1.4 % Basophils (%) (Auto) 0.8 % 0.4 % Neutrophils # (Auto) 3.1 TH/MM3 6.1 TH/MM3 Lymphocytes # (Auto) 2.8 TH/MM3 3.0 TH/MM3 Monocytes # (Auto) 0.6 TH/MM3 0.8 TH/MM3 Eosinophils # (Auto) 0.2 TH/MM3 0.1 TH/MM3 Basophils # (Auto) 0.1 TH/MM3 0.0 TH/MM3 CBC Comment DIFF FINAL DIFF FINAL Differential Comment Prothrombin Time 10.2 SEC 10.7 SEC Prothromb Time International 0.9 RATIO 1.0 RATIO Ratio Activated Partial 26.8 SEC 25.7 SEC Thromboplast Time Sodium Level 136 MEQ/L 139 MEQ/L Potassium Level 3.9 MEQ/L 3.3 MEQ/L Chloride Level 102 MEQ/L 104 MEQ/L Carbon Dioxide Level 27.2 MEQ/L 26.1 MEQ/L Anion Gap 7 MEQ/L 9 MEQ/L Blood Urea Nitrogen 14 MG/DL 12 MG/DL Creatinine 0.92 MG/DL 0.81 MG/DL Estimat Glomerular Filtration 62 ML/MIN 72 ML/MIN Rate Random Glucose 161 MG/DL 131 MG/DL Calcium Level 9.4 MG/DL 8.3 MG/DL Troponin I 0.03 NG/ML 0.04 NG/ML Free Thyroxine 1.20 NG/DL Free Triiodothyronine (T3) 3.01 PG/ML pg/dL Thyroid Stimulating Hormone 0.430 uIU/ML 3rd Gen Phosphorus Level 3.9 MG/DL Magnesium Level 1.9 MG/DL Total Bilirubin 0.5 MG/DL Aspartate Amino Transf 27 U/L (AST/SGOT) Alanine Aminotransferase 55 U/L (ALT/SGPT) Alkaline Phosphatase 51 U/L Total Protein 6.2 GM/DL Albumin 3.4 GM/DL Vital Signs Date Time Temp Pulse Resp B/P Pulse Ox O2 Delivery O2 Flow Rate FiO2 04/27/17 07:45 98 Nasal Cannula 2.00 04/27/17 04:00 Nasal Cannula 2.00 04/27/17 04:00 98.4 61 17 109/58 96 04/27/17 00:00 98.4 73 12 104/57 93 04/26/17 23:00 76 04/26/17 21:34 94 Nasal Cannula 2.00 04/26/17 20:00 98.2 86 19 128/60 94 04/26/17 19:00 95 Nasal Cannula 2.00 04/26/17 16:30 Room Air 04/26/17 16:30 98.7 98 16 151/68 94 04/26/17 16:30 98 04/26/17 15:20 89 18 143/63 99 Room Air 04/26/17 14:38 84 18 187/71 98 Room Air 04/26/17 12:33 78 188/63 04/26/17 12:21 81 18 95 Room Air 04/26/17 11:49 98.3 83 17 233/114 98 (Steve Parkinson) Medical Decision Making Impression and Plan Impression: 1. Small right parieto-occipital convexity subarachnoid hemorrhage. Likely hypertensive, but need to assess for focal watershed region hemorrhagic CVA. 2. Hypertension, improved 3. History of Jeanne's thyroiditis CTA brain unremarkable for aneurysmal disease CTA neck demonstrates patent carotids & vertebrals throughout, incidental finding of probable multinodular goiter Hypokalemia this morning Patient is neurologically stable this morning w/improved headache Plan: Primary management per [employer] Frequent neuro checks Maintain SBP in the range of 120-140, nicardipine drip as needed At present no indication for nimodipine (Steve Parkinson) Attending Statement I have personally seen and examined the patient on the date of this note. Pertinent documentation and study results have been reviewed by the undersigned. I have personally developed the treatment plan and performed medical decision making. Agree with findings, exam, and treatment plan as noted above. Remains was stable and intact neurologic examination today. The patient's CT angiogram brain images reviewed by the undersigned. No evidence of aneurysm or vascular malformation or arterial occlusion or significant cerebrovascular disease. Likely hypertensive right parieto- occipital hemorrhage. Continue to monitor blood pressure closely with intravenous medications as needed for blood pressure control. Diet and activity may be advanced. (Joni Ochoa MD) Steve Parkinson Apr 27, 2017 09:18 Joni Ochoa MD Apr 27, 2017 18:36 or vascular malformation. May need adjustment of blood pressure control range depending on CT angiogram results. Intensive care admission Close neurologic checks and vital signs Given small degree of subarachnoid hemorrhage and non-aneurysmal nature of the bleed, will not begin nimodipine at this time. Steve Parkinson Apr 27, 2017 09:18
[2017-04-27] MEDS ORDERED: LEVO100T5 PO (10:10)
[2017-04-27] MEDS ORDERED: BENA20TA4 PO (10:10)
[2017-04-27] MEDS ORDERED: POTASSIUM CHLORIDE 25 MEQ EFFERVESCENT TAB PO ONE (11:30)
[2017-04-27] MEDS: FAMOTIDINE 20 MG/2 ML VIAL IV PUSH SCH ×2 (11:37→21:10)
[2017-04-27] MEDS: HYDROCHLOROTHIAZIDE 25 MG TAB PO SCH (11:37)
[2017-04-27] MEDS: LISINOPRIL 20 MG TAB PO SCH (11:37)
[2017-04-27] MEDS: SODIUM CHLORIDE 0.9% FLUSH 10 ML FLUSH IV FLUSH SCH ×2 (11:38→21:11)
[2017-04-27] MEDS: DOCUSATE SODIUM 50 MG/SENNA 8.6 MG TAB PO SCH ×2 (11:38→21:10)
--- NOTE | 2017-04-27 12:17 | ECHRPT ---
Indication: CVA/TIA CONCLUSIONS The left ventricular systolic function is normal with an estimated ejection fraction in the range of 55-60%. Wall thickness is normal. Normal left ventricular size. The left atrial size is upper limits of normal. Trace mitral valve regurgitation. Trace aortic valve regurgitation. Mild aortic valve sclerosis is present. The estimated pulmonary arterial pressure is 31 mmHg. Trivial pulmonary valve regurgitation. BP: 109 / 58 HR: 61 Rhythm: Sinus MEASUREMENTS (Male / Female) Normal Values Technical Quality:Fair 2D ECHO LV Diastolic Diameter PLAX 4.5 cm 4.2 - 5.9 / 3.9 - 5.3 cm LV Systolic Diameter PLAX 3.6 cm IVS Diastolic Thickness 1.3 cm 0.6 - 1.0 / 0.6 - 0.9 cm LVPW Diastolic Thickness 0.8 cm 0.6 - 1.0 / 0.6 - 0.9 cm LV Relative Wall Thickness 0.5 RV Internal Dim ED PLAX 2.2 cm LA Systolic Diameter LX 3.3 cm 3.0 - 4.0 / 2.7 - 3.8 cm M-MODE Aortic Root Diameter MM 3.0 cm AV Cusp Separation MM 1.8 cm DOPPLER AV Peak Velocity 173.0 cm/s AV Peak Gradient 12.0 mmHg LVOT Peak Velocity 115.0 cm/s LVOT Peak Gradient 5.3 mmHg MV Peak Velocity 103.0 cm/s MV Peak Gradient 4.2 mmHg MV Mean Velocity 58.3 cm/s MV Mean Gradient 2.0 mmHg Mitral E Point Velocity 78.0 cm/s Mitral A Point Velocity 59.2 cm/s Mitral E to A Ratio 1.3 LV E' Lateral Velocity 8.3 cm/s Mitral E to LV E' Lateral Ratio 9.4 LV E' Septal Velocity 5.7 cm/s Mitral E to LV E' Septal Ratio 13.8 TR Peak Velocity 254.0 cm/s TR Peak Gradient 25.8 mmHg FINDINGS LEFT VENTRICLE The left ventricular systolic function is normal with an estimated ejection fraction in the range of 55-60%. Wall thickness is normal. Normal left ventricular size. RIGHT VENTRICLE Normal right ventricular size and systolic function. LEFT ATRIUM The left atrial size is upper limits of normal. RIGHT ATRIUM The right atrial size is normal. ATRIAL SEPTUM Normal atrial septal thickness without atrial level shunting by limited color doppler interrogation. AORTA The aortic root and proximal ascending aorta are normal in size on limited imaging. MITRAL VALVE Trace mitral valve regurgitation. AORTIC VALVE Trace aortic valve regurgitation. Mild aortic valve sclerosis is present. TRICUSPID VALVE The estimated pulmonary arterial pressure is 31 mmHg. PULMONARY VALVE Trivial pulmonary valve regurgitation. VESSELS The inferior vena cava is normal in size. PERICARDIUM No pericardial effusion. Julian Chaudhry MD (Electronically Signed) Final Date:27 April 2017 12:16
--- NOTE | 2017-04-27 13:25 | EKG ---
Date Performed: 04/26/2017 Time Performed: 14:46:15 PTAGE: 61 years EKG: Sinus rhythm NONSPECIFIC T-WAVE ABNORMALITY BORDERLINE ECG Compared to prior tracing no significant change PREVIOUS TRACING : 01/26/2007 16.08 DOCTOR: Lusi Fitzgerald Interpretating Date/Time 04/27/2017 13:22:05
[2017-04-27] MEDS: hydrALAZINE HCL 20 MG/ML VIAL IV PUSH PRN (16:46)
[2017-04-27 16:57] LABS: HEMOGLOBIN A1a 1.1 %; HEMOGLOBIN A1b 1.9 %; HEMOGLOBIN Ao 84.3 %; HEMOGLOBIN LA1C 1.8 %; HEMOGLOBIN P3 3.9 %
[2017-04-27] MEDS: LABETALOL HCL 100 MG/20 ML VIAL IV PUSH PRN ×2 (17:45→22:39)
[2017-04-28] VITALS (12 sets, daily range): BP systolic 107–162; BP diastolic 51–76; PULSE 62–110; RESP 12–19; TEMP 98.3–100.2; O2SAT 93–98
[2017-04-28] MEDS: LABETALOL HCL 100 MG/20 ML VIAL IV PUSH PRN (03:50)
[2017-04-28] MEDS: CHLORHEXIDINE GLUCONATE 2 % 1 PACK (2 CLOTHS) TOP SCH (04:00)
[2017-04-28] MEDS: hydrALAZINE HCL 20 MG/ML VIAL IV PUSH PRN ×4 (04:29→14:01)
[2017-04-28 05:06] LABS: BICARBONATE 26.3 MEQ/L (21.0-32.0); POTASSIUM 3.8 MEQ/L (3.5-5.1)
[2017-04-28 05:44] LABS: HEMATOCRIT 37.8 % (35.0-46.0); MEAN CELL VOLUME 90.9 FL (80.0-100.0); MEAN CORPUSCULAR HGB CONC 34.1 % (32.0-36.0); PLATELET COUNT 250 TH/MM3 (150-450); RED BLOOD COUNT 4.15 MIL/MM3 (4.00-5.30); RED CELL DISTRIBUTION WIDTH 13.5 % (11.6-17.2); REVIEW FLAG FINAL; WHITE BLOOD COUNT 7.1 TH/MM3 (4.0-11.0)
[2017-04-28] MEDS: LEVOTHYROXINE SODIUM 100 MCG TAB PO SCH (06:03)
[2017-04-28] MEDS: LISINOPRIL 20 MG TAB PO SCH ×2 (08:18→21:42)
[2017-04-28] MEDS: SODIUM CHLORIDE 0.9% FLUSH 10 ML FLUSH IV FLUSH SCH ×2 (08:18→21:43)
[2017-04-28] MEDS: FAMOTIDINE 20 MG/2 ML VIAL IV PUSH SCH (08:18)
[2017-04-28] MEDS: HYDROCHLOROTHIAZIDE 25 MG TAB PO SCH (08:18)
[2017-04-28] MEDS: DOCUSATE SODIUM 50 MG/SENNA 8.6 MG TAB PO SCH ×2 (08:18→21:43)
[2017-04-28] MEDS: INSULIN NovoLIN REGULAR SUPPLEMENTAL SCALE SQ SCH ×4 (08:58→21:44)
[2017-04-28] MEDS ORDERED: cloNIDine HCL 0.1 MG TAB PO PRN (10:00)
--- NOTE | 2017-04-28 10:07 | HHI.PR ---
Subjective Remarks nausea, headache. required additional iv bp meds overnight. Objective Vitals in chair eyes closed heart reg lung cta abd s/nt ext o edema Vital Signs Date Time Temp Pulse Resp B/P Pulse Ox O2 Delivery O2 Flow Rate FiO2 04/28/17 09:26 93 Nasal Cannula 2.00 04/28/17 08:00 79 04/28/17 08:00 98.3 79 16 162/76 96 04/28/17 08:00 96 Nasal Cannula 2.00 04/28/17 07:02 16 04/28/17 06:00 62 04/28/17 04:00 98.6 66 13 152/63 96 04/28/17 04:00 62 04/28/17 02:00 62 04/28/17 00:00 98.7 62 12 133/61 98 04/28/17 00:00 68 04/27/17 22:00 73 04/27/17 20:02 96 04/27/17 20:00 98.6 73 16 123/58 92 04/27/17 20:00 73 04/27/17 19:00 92 Room Air 04/27/17 18:00 76 04/27/17 16:00 77 04/27/17 16:00 98.7 77 20 153/70 93 04/27/17 14:00 72 04/27/17 12:00 98.0 67 20 157/78 96 04/27/17 12:00 67 04/27/17 11:00 97 Room Air 04/27/17 04/27/17 04/28/17 15:00 23:00 07:00 Intake Total 1456 ml 400 ml 240 ml Balance 1456 ml 400 ml 240 ml Intake Oral 960 ml 400 ml 240 ml IV Total 496 ml # Voids 3 5 3 # Bowel Movements 0 0 0 Result Diagram: 04/28/17 0415 04/28/17 0415 A/P Problem List: (1) Subarachnoid hemorrhage Status: Acute Plan: Pt with small right sah. no aneurysm. htn bleed suspected scheduled bp meds need further adjusting today increase lisinipril and hctz was added. if not controlled will add procardia scheduled. pt has prn meds. prn antiemetics. stop morphine as it makes her more nauseated. (2) H/O Jeanne thyroiditis Status: Chronic (3) History of hypertension Status: Chronic (4) Hypertensive emergency, no CHF Status: Acute Plan: see above Benji Miller MD Apr 28, 2017 10:07
--- NOTE | 2017-04-28 10:26 | HHI.NSPN ---
(Steve Parkinson) History Chief Complaint: Headache with N/V this morning (Steve Parkinson) Interval History 04/26: 61-year-old female with onset of severe frontal headache 1-2 hours prior to evaluation in the emergency room. Noted to be hypertensive with systolic blood pressure 220s. Nausea without emesis. No seizure activity reported. No other recent headaches or neurologic symptoms. No pain, weakness, numbness or paresthesias in the extremities. No blurred vision or diplopia speech difficulty. No recent fevers or chills. 04/27: Patient awake when seen this morning and states that she is doing good. She had no complaints. She had tolerated a clear liquid diet. She did endorse a headache, nausea and visual problems yesterday but none today. Yesterday afternoon she had a CTA brain & neck were unremarkable for any aneurysmal disease and demonstrated patent carotids & vertebrals throughout. There was an incidental finding of a probable multinodular goiter. 04/28: The patient states that she is not "as good as yesterday." She states that she had a headache during the night secondary to her BP being elevated. It is improved after pain medication but she did have nausea and vomiting due to the medication. The nausea is getting better after medication and she has not had any further vomiting. (Steve Parkinson) System Review Comments Constitutional: Patient denies any fever or chills. HEENT: Patient denies any blurry or double vision or other visual difficulty. Respiratory: Patient denies any shortness of breath or productive cough. Cardiovascular: Patient denies any chest pain, palpitations or irregular heartbeat. Gastrointestinal: Patient with nausea and vomiting this morning due to pain medication, getting better after medication for it. She denies any abdominal pain or incontinence of stool. Genitourinary: Patient denies any incontinence of urine. Musculoskeletal: Patient denies any pain or weakness to the arms or legs. She denies any neck pain or pain with movement. Neurologic: Patient with headache that is improving after medication. She denies any dizziness, numbness or tingling. (Steve Parkinson) Exam Results Vital Signs Date Time Temp Pulse Resp B/P Pulse Ox O2 Delivery O2 Flow Rate FiO2 04/28/17 09:26 93 Nasal Cannula 2.00 04/28/17 08:00 79 04/28/17 08:00 98.3 16 162/76 Intake and Output 04/27/17 04/27/17 04/28/17 08:00 16:00 00:00 Intake Total 807 ml 1456 ml 400 ml Output Total 1000 ml Balance -193 ml 1456 ml 400 ml (Steve Parkinson) Physical Examination GENERAL: Patient mildly uncomfortable but not in distress, she readily interacts , her affect is slightly flat. HEENT: Normocephalic, atraumatic. NECK: Active ROM w/o pain, no JVD, trachea midline. CARDIOVASCULAR: S1S2 w/RRR w/o M/G/R, radial & pedal pulses 2+ bilaterally, cap refill < 2 sec, no pedal edema. Monitor is sinus rhythm w/o any evident ectopy. RESPIRATORY: CTAB w/o W/R/R, equal excursion, nonlaboured, on RA. GASTROINTESTINAL: Abdomen soft, nontender, positive bowel sounds. MUSCULOSKELETAL: RAMOS w/o difficulty, no evident deformities or clubbing noted. INTEGUMENTARY: Warm, dry & intact, w/o any evident discolouration, lesions, ulcerations or rashes. NEUROLOGICAL: AAOx3 Speech clear & appropriate Follows simple commands w/o difficulty PERRL brisk Sensation intact to light touch to all extremities Motor strength 5/5 to all major flexion & extension muscle groups (Steve Parkinson) Lab, Micro, Other Results Allergies Coded Allergies Type Severity Reaction Last Updated Verified Levaquin Allergy Mild 01/26/07 Yes Recent Impressions Neck CTA 04/26/17 0000 Signed Impressions: Service Date/Time: Wednesday, April 26, 2017 14:20 - CONCLUSION: 1. There is some atherosclerotic calcification of the internal bilaterally. However, the carotids and vertebrals are patent throughout. 2. Nodularity and irregularity of the thyroid gland probably representing multinodular goiter. Subhash Sheehan MD Head CTA 04/26/17 0000 Signed Impressions: Service Date/Time: Wednesday, April 26, 2017 14:20 - CONCLUSION: Negative exam. Intracranial vessels are patent without aneurysmal disease. Subhash Sheehan MD Head CT 04/26/17 0000 Signed Impressions: Service Date/Time: Wednesday, April 26, 2017 12:40 - CONCLUSION: Tiny amount of subarachnoid hemorrhage in the right occipitoparietal region otherwise unremarkable study. Eduar Bauer MD 06:00 18:00 06:00 18:00 06:00 18:00 Intake Total 1831 ml 1456 ml 640 ml Output Total 1000 ml Balance 831 ml 1456 ml 640 ml Intake Oral 240 ml 960 ml 640 ml IV Total 1591 ml 496 ml Output Urine Total 1000 ml Stool Total 0 ml # Voids 1 3 8 # Bowel Movements 0 0 0 Laboratory Tests Test 04/26/17 04/26/17 04/27/17 04/28/17 12:13 17:54 04:20 04:15 White Blood Count 6.7 TH/MM3 10.1 TH/MM3 7.1 TH/MM3 Red Blood Count 4.60 MIL/MM3 4.18 MIL/MM3 4.15 MIL/MM3 Hemoglobin 14.3 GM/DL 13.1 GM/DL 12.9 GM/DL Hematocrit 41.1 % 37.7 % 37.8 % Mean Corpuscular Volume 89.3 FL 90.0 FL 90.9 FL Mean Corpuscular Hemoglobin 31.1 PG 31.4 PG 31.0 PG Mean Corpuscular Hemoglobin 34.9 % 34.8 % 34.1 % Concent Red Cell Distribution Width 13.1 % 13.3 % 13.5 % Platelet Count 290 TH/MM3 276 TH/MM3 250 TH/MM3 Mean Platelet Volume 8.5 FL 8.3 FL 8.3 FL Neutrophils (%) (Auto) 46.1 % 60.3 % Lymphocytes (%) (Auto) 41.3 % 29.6 % Monocytes (%) (Auto) 9.5 % 8.3 % Eosinophils (%) (Auto) 2.3 % 1.4 % Basophils (%) (Auto) 0.8 % 0.4 % Neutrophils # (Auto) 3.1 TH/MM3 6.1 TH/MM3 Lymphocytes # (Auto) 2.8 TH/MM3 3.0 TH/MM3 Monocytes # (Auto) 0.6 TH/MM3 0.8 TH/MM3 Eosinophils # (Auto) 0.2 TH/MM3 0.1 TH/MM3 Basophils # (Auto) 0.1 TH/MM3 0.0 TH/MM3 CBC Comment DIFF FINAL DIFF FINAL Differential Comment Prothrombin Time 10.2 SEC 10.7 SEC Prothromb Time International 0.9 RATIO 1.0 RATIO Ratio Activated Partial 26.8 SEC 25.7 SEC Thromboplast Time Sodium Level 136 MEQ/L 139 MEQ/L 141 MEQ/L Potassium Level 3.9 MEQ/L 3.3 MEQ/L 3.8 MEQ/L Chloride Level 102 MEQ/L 104 MEQ/L 106 MEQ/L Carbon Dioxide Level 27.2 MEQ/L 26.1 MEQ/L 26.3 MEQ/L Anion Gap 7 MEQ/L 9 MEQ/L 9 MEQ/L Blood Urea Nitrogen 14 MG/DL 12 MG/DL 12 MG/DL Creatinine 0.92 MG/DL 0.81 MG/DL 0.84 MG/DL Estimat Glomerular Filtration 62 ML/MIN 72 ML/MIN 69 ML/MIN Rate Random Glucose 161 MG/DL 131 MG/DL 130 MG/DL Calcium Level 9.4 MG/DL 8.3 MG/DL 8.7 MG/DL Troponin I 0.03 NG/ML 0.04 NG/ML Free Thyroxine 1.20 NG/DL Free Triiodothyronine (T3) 3.01 PG/ML pg/dL Thyroid Stimulating Hormone 0.430 uIU/ML 3rd Gen Hemoglobin A1c 6.7 % Phosphorus Level 3.9 MG/DL Magnesium Level 1.9 MG/DL Total Bilirubin 0.5 MG/DL Aspartate Amino Transf 27 U/L (AST/SGOT) Alanine Aminotransferase 55 U/L (ALT/SGPT) Alkaline Phosphatase 51 U/L Total Protein 6.2 GM/DL Albumin 3.4 GM/DL Vital Signs Date Time Temp Pulse Resp B/P Pulse Ox O2 Delivery O2 Flow Rate FiO2 04/28/17 09:26 93 Nasal Cannula 2.00 04/28/17 08:00 79 04/28/17 08:00 98.3 79 16 162/76 96 04/28/17 08:00 96 Nasal Cannula 2.00 04/28/17 07:02 16 04/28/17 06:00 62 04/28/17 04:00 98.6 66 13 152/63 96 04/28/17 04:00 62 04/28/17 02:00 62 04/28/17 00:00 98.7 62 12 133/61 98 04/28/17 00:00 68 04/27/17 22:00 73 04/27/17 20:02 96 04/27/17 20:00 98.6 73 16 123/58 92 04/27/17 20:00 73 04/27/17 19:00 92 Room Air 04/27/17 18:00 76 04/27/17 16:00 77 04/27/17 16:00 98.7 77 20 153/70 93 04/27/17 14:00 72 04/27/17 12:00 98.0 67 20 157/78 96 04/27/17 12:00 67 04/27/17 11:00 97 Room Air 04/27/17 10:00 69 04/27/17 08:00 98.0 74 20 139/71 94 04/27/17 08:00 77 04/27/17 07:45 98 Nasal Cannula 2.00 04/27/17 07:00 94 Nasal Cannula 2.00 04/27/17 04:00 Nasal Cannula 2.00 04/27/17 04:00 98.4 61 17 109/58 96 04/27/17 00:00 98.4 73 12 104/57 93 04/26/17 23:00 76 04/26/17 21:34 94 Nasal Cannula 2.00 04/26/17 20:00 98.2 86 19 128/60 94 04/26/17 19:00 95 Nasal Cannula 2.00 04/26/17 16:30 Room Air 04/26/17 16:30 98.7 98 16 151/68 94 04/26/17 16:30 98 04/26/17 15:20 89 18 143/63 99 Room Air 04/26/17 14:38 84 18 187/71 98 Room Air 04/26/17 12:33 78 188/63 04/26/17 12:21 81 18 95 Room Air 04/26/17 11:49 98.3 83 17 233/114 98 (Steve Parkinson) Medical Decision Making Impression and Plan Impression: 1. Small right parieto-occipital convexity subarachnoid hemorrhage. Likely hypertensive, but need to assess for focal watershed region hemorrhagic CVA. 2. Hypertension, improved 3. History of Jeanne's thyroiditis CTA brain unremarkable for aneurysmal disease CTA neck demonstrates patent carotids & vertebrals throughout, incidental finding of probable multinodular goiter Hypokalemia, resolved (3.3=>3.8) Patient remains neurologically stable this morning, headache during night secondary to elevated BP Plan: Primary management per Death Clearance Coordinator Frequent neuro checks Maintain SBP in the range of 120-140, nicardipine drip as needed At present no indication for nimodipine (Steve Parkinson) Impression and Plan I have personally seen and examined the patient on the date of this note. Pertinent documentation and study results have been reviewed by the undersigned. I have personally developed the treatment plan and performed medical decision making. Agree with findings, exam, and treatment plan as noted above. Patient sitting up in a chair today. Awake and alert. Still moderate headache. Positive nausea this morning which may be related to morphine. Neurologic exam remains intact today. Discussed findings with the patient and her family. Continuing efforts to control hypertension. Medicine service suggesting antihypertensive medications. Once blood pressure is adequately controlled, she is stable for discharge from neurosurgery standpoint. An outpatient CT scan of the head can be obtained in 10-14 days to make certain that there is good resolution of the small right parietal convexity subarachnoid hemorrhage. (Joni Ochoa MD) Steve Parkinson Apr 28, 2017 10:26 Joni Ochoa MD Apr 28, 2017 12:28
[2017-04-28] MEDS: ONDANSETRON HCL 4 MG/2 ML VIAL IV PRN ×2 (12:00→17:00)
[2017-04-28] MEDS: ARTIFICIAL TEARS OPTH SOLN 15 ML BTL EACH EYE SCH (13:00)
[2017-04-28] MEDS ORDERED: MORPHINE SULFATE 4 MG/ML INJ IV PUSH ONE (14:00)
[2017-04-28] MEDS: MORPHINE SULFATE 4 MG/ML INJ IV PUSH PRN ×2 (17:29→17:34)
[2017-04-28] MEDS ORDERED: ACETAMIN 325 MG/BUTALBITAL 50 MG/CAFFEINE 40 MG TAB PO ONE (18:15)
[2017-04-28] MEDS ORDERED: PROMETHAZINE INJ 25 MG/ML VIAL IM PRN (18:15)
[2017-04-29] VITALS (11 sets, daily range): BP systolic 91–146; BP diastolic 44–87; PULSE 70–77; RESP 11–20; TEMP 97.5–99.1; O2SAT 93–96
[2017-04-29] MEDS: CHLORHEXIDINE GLUCONATE 2 % 1 PACK (2 CLOTHS) TOP SCH (04:00)
[2017-04-29] MEDS: LEVOTHYROXINE SODIUM 100 MCG TAB PO SCH (06:01)
[2017-04-29] MEDS: INSULIN NovoLIN REGULAR SUPPLEMENTAL SCALE SQ SCH ×3 (07:00→16:00)
[2017-04-29] MEDS: DOCUSATE SODIUM 50 MG/SENNA 8.6 MG TAB PO SCH ×2 (08:58→22:37)
[2017-04-29] MEDS: PANTOPRAZOLE SOD 40 MG DELAYED RELEASE TAB PO SCH (08:58)
[2017-04-29] MEDS: SODIUM CHLORIDE 0.9% FLUSH 10 ML FLUSH IV FLUSH SCH ×2 (08:58→22:37)
[2017-04-29] MEDS: HYDROCHLOROTHIAZIDE 25 MG TAB PO SCH (08:58)
[2017-04-29] MEDS: LISINOPRIL 20 MG TAB PO SCH ×2 (08:58→22:37)
--- NOTE | 2017-04-29 09:05 | HHI.NSPN ---
(Steve Parkinson) History Chief Complaint: Slight headache but doing better this morning (Steve Parkinson) Interval History 04/26: 61-year-old female with onset of severe frontal headache 1-2 hours prior to evaluation in the emergency room. Noted to be hypertensive with systolic blood pressure 220s. Nausea without emesis. No seizure activity reported. No other recent headaches or neurologic symptoms. No pain, weakness, numbness or paresthesias in the extremities. No blurred vision or diplopia speech difficulty. No recent fevers or chills. 04/27: Patient awake when seen this morning and states that she is doing good. She had no complaints. She had tolerated a clear liquid diet. She did endorse a headache, nausea and visual problems yesterday but none today. Yesterday afternoon she had a CTA brain & neck were unremarkable for any aneurysmal disease and demonstrated patent carotids & vertebrals throughout. There was an incidental finding of a probable multinodular goiter. 04/28: The patient states that she is not "as good as yesterday." She states that she had a headache during the night secondary to her BP being elevated. It is improved after pain medication but she did have nausea and vomiting due to the medication. The nausea is getting better after medication and she has not had any further vomiting. 04/29: The patient states that she is doing better this morning. She does have a slight headache at this time. She denies any nausea or vomiting. (Steve Parkinson) System Review Comments Constitutional: Patient denies any fever or chills. HEENT: Patient denies any blurry or double vision or other visual difficulty. Respiratory: Patient denies any shortness of breath or productive cough. Cardiovascular: Patient denies any chest pain, palpitations or irregular heartbeat. Gastrointestinal: Patient denies any abdominal pain, nausea, vomiting or incontinence of stool. Genitourinary: Patient denies any incontinence of urine. Musculoskeletal: Patient denies any pain or weakness to the arms or legs. She denies any neck pain or pain with movement. Neurologic: Patient with slight headache this morning, better than yesterday. She denies any dizziness, numbness or tingling. (Steve Parkinson) Exam Results Vital Signs Date Time Temp Pulse Resp B/P Pulse Ox O2 Delivery O2 Flow Rate FiO2 04/29/17 07:00 95 Nasal Cannula 2.00 04/29/17 06:00 71 04/29/17 04:00 98.6 14 107/87 Intake and Output 04/28/17 04/28/17 04/29/17 08:00 16:00 00:00 Intake Total 240 ml 618 ml 400 ml Balance 240 ml 618 ml 400 ml (Steve Parkinson) Physical Examination GENERAL: Patient appears comfortable w/no apparent distress, she readily interacts, her affect is normal. HEENT: Normocephalic, atraumatic. NECK: Active ROM w/o pain, no JVD, trachea midline. CARDIOVASCULAR: S1S2 w/RRR w/o M/G/R, radial & pedal pulses 2+ bilaterally, cap refill < 2 sec, no pedal edema. Monitor is sinus rhythm w/o any evident ectopy. RESPIRATORY: CTAB w/o W/R/R, equal excursion, nonlaboured, on RA. GASTROINTESTINAL: Abdomen soft, nontender, positive bowel sounds. MUSCULOSKELETAL: RAMOS w/o difficulty, no evident deformities or clubbing noted. INTEGUMENTARY: Warm, dry & intact, w/o any evident discolouration, lesions, ulcerations or rashes. NEUROLOGICAL: AAOx3 Speech clear & appropriate Follows simple commands w/o difficulty PERRL brisk Sensation intact to light touch to all extremities Motor strength 5/5 to all major flexion & extension muscle groups (Steve Parkinson) Medical Decision Making Impression and Plan Impression: 1. Small right parieto-occipital convexity subarachnoid hemorrhage, hypertensive 2. Hypertension, improved 3. History of Jeanne's thyroiditis CTA brain unremarkable for aneurysmal disease CTA neck demonstrates patent carotids & vertebrals throughout, incidental finding of probable multinodular goiter Hypokalemia, resolved Patient doing well neurologically Plan: Primary management per Hardware Sales Assistant Frequent neuro checks Maintain SBP in the range of 120-140, nicardipine drip as needed At present no indication for nimodipine (Steve Parkinson) Attending Statement I have personally seen and examined the patient on the date of this note. Pertinent documentation and study results have been reviewed by the undersigned. I have personally developed the treatment plan and performed medical decision making. Agree with findings, exam, and treatment plan as noted above. I had a long discussion today with the patient and her family in the room on 10/04. She remains awake and alert. Respirations clear to auscultation. Cardiac regular without murmur. Speech is clear and appropriate. Reasonable judgment and insight. Pupils are equal and reactive to accommodation. Extra-ocular movements, visual [place] to confrontation, facial sensorimotor, tongue, palate, sternocleidomastoid testing, hearing to finger rub testing, and bilateral shoulder shrug are all intact. Sensation intact to light touch all extremities Strength is normal throughout the upper and lower extremity major flexion and extension groups Fine motor movements intact in the upper extremities Her blood pressure has been well controlled today. She is stable for discharge home on 04/30/17 from a neurosurgery standpoint. She will need a follow-up CT scan of the head in approximately 7-10 days. Numerous questions answered including regarding her activity level, diet, cardiac exercise program. (Joni Ochoa MD) Steve Parkinson Apr 29, 2017 09:05 Joni Ochoa MD Apr 29, 2017 19:06
[2017-04-29] MEDS: ARTIFICIAL TEARS OPTH SOLN 15 ML BTL EACH EYE SCH ×3 (09:58→18:00)
--- NOTE | 2017-04-29 10:31 | HHI.PR ---
Subjective Remarks doing better. less breakthrough bp meds needed. Objective Vitals heart reg lung cta abd s/nt ext no edema Vital Signs Date Time Temp Pulse Resp B/P Pulse Ox O2 Delivery O2 Flow Rate FiO2 04/29/17 08:41 94 Nasal Cannula 3.00 04/29/17 07:00 95 Nasal Cannula 2.00 04/29/17 06:00 71 04/29/17 04:00 98.6 76 14 107/87 95 04/29/17 04:00 76 04/29/17 02:00 70 04/29/17 00:00 99.0 72 11 91/44 96 04/29/17 00:00 72 04/28/17 22:43 13 04/28/17 22:00 77 04/28/17 21:00 99.2 82 13 109/52 95 04/28/17 20:00 110 04/28/17 20:00 100.2 110 19 117/58 96 04/28/17 19:00 96 Nasal Cannula 2.00 04/28/17 18:00 77 04/28/17 17:34 16 04/28/17 16:00 90 04/28/17 16:00 98.3 90 12 107/51 93 04/28/17 13:45 14 04/28/17 12:00 98.4 66 16 153/64 96 04/28/17 12:00 66 04/28/17 04/28/17 04/29/17 15:00 23:00 07:00 Intake Total 618 ml 400 ml 120 ml Balance 618 ml 400 ml 120 ml Intake Oral 480 ml 400 ml 120 ml IV Total 138 ml # Voids 3 3 2 # Bowel Movements 1 Result Diagram: 04/28/17 0415 04/28/17 0415 A/P Problem List: (1) Subarachnoid hemorrhage Status: Acute Plan: Pt with small right sah. no aneurysm. htn bleed suspected scheduled bp meds . further adjusment as needed lisiniprol and hctz currently if not controlled will add procardia scheduled. pt has prn meds. prn antiemetics. PT eval..transfer to . (2) H/O Jeanne thyroiditis Status: Chronic (3) History of hypertension Status: Chronic (4) Hypertensive emergency, no CHF Status: Acute Plan: see above Benji Miller MD Apr 29, 2017 10:31
[2017-04-30] VITALS (8 sets, daily range): BP systolic 116–157; BP diastolic 54–71; PULSE 63–89; RESP 16–20; TEMP 97.6–98.3; O2SAT 92–96
[2017-04-30] MEDS: CHLORHEXIDINE GLUCONATE 2 % 1 PACK (2 CLOTHS) TOP SCH (03:50)
[2017-04-30] MEDS: LEVOTHYROXINE SODIUM 100 MCG TAB PO SCH (05:28)
[2017-04-30] MEDS: LISINOPRIL 20 MG TAB PO SCH ×2 (07:48→21:22)
[2017-04-30] MEDS: PANTOPRAZOLE SOD 40 MG DELAYED RELEASE TAB PO SCH (07:48)
[2017-04-30] MEDS: HYDROCHLOROTHIAZIDE 25 MG TAB PO SCH (07:49)
[2017-04-30] MEDS: DOCUSATE SODIUM 50 MG/SENNA 8.6 MG TAB PO SCH ×2 (07:49→21:22)
[2017-04-30] MEDS: SODIUM CHLORIDE 0.9% FLUSH 10 ML FLUSH IV FLUSH SCH ×2 (07:49→21:23)
[2017-04-30] MEDS: ARTIFICIAL TEARS OPTH SOLN 15 ML BTL EACH EYE SCH ×2 (09:00→13:00)
[2017-04-30] MEDS ORDERED: LACTULOSE SYRUP 20 GM/30 ML CUP PO ONE (11:30)
--- NOTE | 2017-04-30 11:31 | HHI.PR ---
Subjective Remarks feels better constipated Objective Vitals heart reg magaly gcta abd s/nt ext no edema Vital Signs Date Time Temp Pulse Resp B/P Pulse Ox O2 Delivery O2 Flow Rate FiO2 04/30/17 08:00 98.0 80 16 134/62 92 04/30/17 04:52 98.1 72 16 116/69 94 04/30/17 01:08 71 04/30/17 01:02 97.8 63 18 122/54 94 04/29/17 20:00 98.4 77 18 132/61 93 04/29/17 16:49 97.5 74 20 146/65 93 04/29/17 15:56 98.2 72 16 99/56 94 04/29/17 15:56 72 04/29/17 12:00 98.8 70 18 124/61 94 04/29/17 12:00 70 04/29/17 04/29/17 04/30/17 15:00 23:00 07:00 Intake Total 720 ml Balance 720 ml Intake Oral 720 ml # Voids 3 2 # Bowel Movements 0 0 Result Diagram: 04/28/17 0415 04/28/17 0415 A/P Problem List: (1) Subarachnoid hemorrhage Status: Acute Plan: Pt with small right sah. no aneurysm. htn bleed suspected scheduled bp meds . further adjusment as needed lisiniprol and hctz currently if not controlled will add procardia scheduled. pt has prn meds. prn antiemetics. laxatives today and monitor bp for another 24 hrs..if stable then d/c tomorrow with pcp fu and nsg f/u (2) H/O Jeanne thyroiditis Status: Chronic (3) History of hypertension Status: Chronic (4) Hypertensive emergency, no CHF Status: Acute Plan: see above Benji Miller MD Apr 30, 2017 11:30
--- NOTE | 2017-04-30 12:54 | HHI.NSPN ---
(Steve Parkinson) History Chief Complaint: Feels a little fuzzy today (Steve Parkinson) Interval History 04/26: 61-year-old female with onset of severe frontal headache 1-2 hours prior to evaluation in the emergency room. Noted to be hypertensive with systolic blood pressure 220s. Nausea without emesis. No seizure activity reported. No other recent headaches or neurologic symptoms. No pain, weakness, numbness or paresthesias in the extremities. No blurred vision or diplopia speech difficulty. No recent fevers or chills. 04/27: Patient awake when seen this morning and states that she is doing good. She had no complaints. She had tolerated a clear liquid diet. She did endorse a headache, nausea and visual problems yesterday but none today. Yesterday afternoon she had a CTA brain & neck were unremarkable for any aneurysmal disease and demonstrated patent carotids & vertebrals throughout. There was an incidental finding of a probable multinodular goiter. 04/28: The patient states that she is not "as good as yesterday." She states that she had a headache during the night secondary to her BP being elevated. It is improved after pain medication but she did have nausea and vomiting due to the medication. The nausea is getting better after medication and she has not had any further vomiting. 04/29: The patient states that she is doing better this morning. She does have a slight headache at this time. She denies any nausea or vomiting. 04/30: The patient states she is doing good when seen this afternoon although she feels a little fuzzy due to "laying around all the time." She did not endorse any headache. She did have some abdominal pain this morning which was relieved with having a bowel movement. (Steve Parkinson) System Review Comments Constitutional: Patient denies any fever or chills. HEENT: Patient denies any blurry or double vision or other visual difficulty. Respiratory: Patient denies any shortness of breath or productive cough. Cardiovascular: Patient denies any chest pain, palpitations or irregular heartbeat. Gastrointestinal: Patient endorsed abdominal pain relieved with having a bowel movement. She denies any nausea, vomiting or incontinence of stool. Genitourinary: Patient denies any incontinence of urine. Musculoskeletal: Patient denies any pain or weakness to the arms or legs. She denies any neck pain or pain with movement. Neurologic: Patient feels fuzzy today but doesn't endorse any headache. She denies any dizziness, numbness or tingling. (Steve Parkinson) Exam Results Vital Signs Date Time Temp Pulse Resp B/P Pulse Ox O2 Delivery O2 Flow Rate FiO2 04/30/17 12:02 98.3 89 16 126/56 96 04/29/17 08:41 Nasal Cannula 3.00 Intake and Output 04/29/17 04/29/17 04/30/17 08:00 16:00 00:00 Intake Total 120 ml 720 ml Balance 120 ml 720 ml (Steve Parkinson) Physical Examination GENERAL: Patient appears comfortable w/o any apparent distress, she readily interacts, her affect is normal. HEENT: Normocephalic, atraumatic. NECK: Active ROM w/o pain, no JVD, trachea midline. CARDIOVASCULAR: S1S2 w/RRR w/o M/G/R, radial & pedal pulses 2+ bilaterally, cap refill < 2 sec, no pedal edema. RESPIRATORY: CTAB w/o W/R/R, equal excursion, nonlaboured, on RA. GASTROINTESTINAL: Abdomen soft, nontender, positive bowel sounds. MUSCULOSKELETAL: RAMOS w/o difficulty, no evident deformities or clubbing noted. INTEGUMENTARY: Warm, dry & intact, w/o any evident discolouration, lesions, ulcerations or rashes. NEUROLOGICAL: AAOx3 Speech clear & appropriate Follows simple commands w/o difficulty PERRL brisk Sensation intact to light touch to all extremities Motor strength 5/5 to all major flexion & extension muscle groups (Steve Parkinson) Medical Decision Making Impression and Plan Impression: 1. Small right parieto-occipital convexity subarachnoid hemorrhage, hypertensive 2. Hypertension, improved 3. History of Jeanne's thyroiditis CTA brain unremarkable for aneurysmal disease CTA neck demonstrates patent carotids & vertebrals throughout, incidental finding of probable multinodular goiter Hypokalemia, resolved Patient remains neurologically intact Plan: Primary management per Hospitalist Neuro checks Maintain SBP in the range of 120-140 Patient okay for discharge from NSGY's perspective Will have repeat CT brain in 7-10 days with follow up appointment after that ( Steve Parkinson) Attending Statement Pertinent documentation and study results have been reviewed by the undersigned. I have personally developed the treatment plan and performed medical decision making. Agree with findings, exam, and treatment plan as noted above. Patient's vital signs reviewed-stable today without episodes of hypertension. Medicine notes reviewed. Patient is stable for discharge home from a neurosurgery standpoint. A follow-up CT scan of the head will be obtained in approximately 10 days. (Joni Ochoa MD) Steve Parkinson Apr 30, 2017 12:54 Joni Ochoa MD Apr 30, 2017 20:24
[2017-04-30] MEDS: LACTULOSE SYRUP 20 GM/30 ML CUP PO SCH (21:22)
[2017-05-01] VITALS (7 sets, daily range): BP systolic 110–139; BP diastolic 62–82; PULSE 72–85; RESP 16–20; TEMP 95.8–96.6; O2SAT 93–97
[2017-05-01] MEDS: CHLORHEXIDINE GLUCONATE 2 % 1 PACK (2 CLOTHS) TOP SCH (03:24)
[2017-05-01] MEDS: LEVOTHYROXINE SODIUM 100 MCG TAB PO SCH (05:25)
[2017-05-01] MEDS: DOCUSATE SODIUM 50 MG/SENNA 8.6 MG TAB PO SCH (09:00)
[2017-05-01] MEDS: LACTULOSE SYRUP 20 GM/30 ML CUP PO SCH (09:00)
[2017-05-01] MEDS: HYDROCHLOROTHIAZIDE 25 MG TAB PO SCH (10:25)
[2017-05-01] MEDS: LISINOPRIL 20 MG TAB PO SCH (10:25)
[2017-05-01] MEDS: PANTOPRAZOLE SOD 40 MG DELAYED RELEASE TAB PO SCH (10:27)
[2017-05-01] MEDS: ARTIFICIAL TEARS OPTH SOLN 15 ML BTL EACH EYE SCH ×2 (10:27→13:00)
[2017-05-01] MEDS: SODIUM CHLORIDE 0.9% FLUSH 10 ML FLUSH IV FLUSH SCH (10:27)
--- NOTE | 2017-05-01 11:50 | HHI.PR ---
Subjective Remarks NO NEW PROBLEMS NO H/A Objective Vitals HEART REG LUNG CTA ABD S/NT EXT NO EDEMA Vital Signs Date Time Temp Pulse Resp B/P Pulse Ox O2 Delivery O2 Flow Rate FiO2 05/01/17 09:11 97 05/01/17 08:32 96.0 72 16 134/64 93 05/01/17 04:00 96.0 85 20 110/62 96 05/01/17 02:12 85 05/01/17 00:00 96.6 77 20 139/76 96 04/30/17 20:00 98.0 88 20 157/71 96 04/30/17 17:55 93 21 04/30/17 16:03 97.6 89 16 127/58 93 04/30/17 12:02 98.3 89 16 126/56 96 04/30/17 04/30/17 05/01/17 15:00 23:00 07:00 Intake Total 1160 ml 60 ml Balance 1160 ml 60 ml Intake Oral 1160 ml 60 ml # Voids 7 2 # Bowel Movements 2 0 Result Diagram: 04/28/17 0415 04/28/17 0415 A/P Problem List: (1) Subarachnoid hemorrhage Status: Acute Plan: Pt with small right sah. no aneurysm. htn bleed suspected scheduled bp meds . further adjusment as needed lisiniprol and hctz currently if not controlled will add procardia scheduled. pt has prn meds. prn antiemetics. D/C WITH PCP AND NSG F/U. [address] F/U MONITOR BP AND KEEP LOGBOOK. CALL PCP. (2) H/O Jeanne thyroiditis Status: Chronic (3) History of hypertension Status: Chronic (4) Hypertensive emergency, no CHF Status: Acute Plan: see above Benji Miller MD May 01, 2017 11:50
[2017-05-01] MEDS ORDERED: LISI-515 PO (11:51)
[2017-05-01] MEDS ORDERED: HYDR25TA5 PO (11:51)
--- NOTE | 2017-05-01 11:51 | HHI.DCPOC ---
Discharge Care Plan Diagnosis: (1) Subarachnoid hemorrhage (2) Hypertensive crisis Goals to Promote Your Health * To prevent worsening of your condition and complications * To maintain your health at the optimal level Directions to Meet Your Goals Take your medications as prescribed Follow your dietary instruction Follow activity as directed Keep your appointments as scheduled Take your immunizations and boosters as scheduled If your symptoms worsen call your PCP, if no PCP go to Urgent Care Center or Emergency Room Smoking is Dangerous to Your Health. Avoid second hand smoke Call the 24-hour hour crisis hotline for domestic abuse at Benji Miller MD May 01, 2017 11:51
== END 2017-05-01 14:32 | disposition home or self-care (01) | DRG 65 ==
LOC: NEPE 11:47 → NEDA 13:47 → N03A 16:38 → N05A 04-29 16:46
PROVIDERS: ADMIT Hospitalist; ATTEND Hospitalist
DX: I60.9 Nontraumatic subarachnoid hemorrhage, unspecified (principal); I16.1 Hypertensive emergency; I10 Essential (primary) hypertension; E06.3 Autoimmune thyroiditis; F40.240 Claustrophobia; E04.2 Nontoxic multinodular goiter; R73.9 Hyperglycemia, unspecified; K59.00 Constipation, unspecified; E87.6 Hypokalemia; Z87.891 Personal history of nicotine dependence
CPT/HCPCS: 70450; 70496; 70498; 80048; 80053; 82948; 83036; 83735; 84100; 84439; 84443; 84481; 84484; 85025; 85027; 85610; 85730; 93005; 93306; 94150; 96374; 96375; J0360; J1953; J2270; J2405; J2550; J7030; J7050; Q9967

== ENCOUNTER 2017-05-06 13:19 | Emergency (ER) | payer OTHER ==
[~2017-05-06] VITALS: Ht 165.1 cm; Wt 90.0 kg
[~2017-05-06 13:19] MED LIST: HYDR25TA5 PO; LEVO100T5 PO; LISI-515 PO
[2017-05-06 13:21] VITALS: BP 141/72; PULSE 102; RESP 20; TEMP 98.3; O2SAT 95
--- NOTE | 2017-05-06 13:59 | PD ---
HPI Chief Complaint: Neuro Symptoms/ Deficits Time Seen by Provider: 13:59 Travel History International Travel<30 days: No Contact w/Intl Traveler<30days: No Traveled to known affect area: No History of Present Illness HPI 61-year-old female came to the emergency room with history of some hazy vision from her right eye. Patient was concerned because 2 weeks ago when she had similar symptoms but with headache she was diagnosed with subarachnoid hemorrhage. Patient says today there is no headache. She was supposed to get a follow-up CAT scan tomorrow but the symptoms started today. Her daughter drove her in. Patient is awake and answering questions appropriately. Patient says this lasted for about half an hour. Currently her vision is normal. Vital signs were stable. [facility]LY [facility] Past Medical History Narrative Medical List of her past medical, surgical, social and family history was reviewed from the nursing note. Cerebrovascular Accident: Yes Hypertension: Yes Menopausal: Yes Past Surgical History Cholecystectomy: Yes (1997) Tonsillectomy: Yes (1960) Social History Alcohol Use: Yes (glass of wine 3x/month) Tobacco Use: No Substance Use: No Allergies-Medications (Allergen,Severity, Reaction): Coded Allergies: Levaquin (Verified Allergy, Mild, 01/26/07) Comments List of her allergies reviewed from the nursing note. Reported Meds & Prescriptions Reported Meds & Active Scripts Active Lisinopril 20 Mg Tab 20 Mg PO BID Hydrochlorothiazide 25 Mg Tab 25 Mg PO DAILY Reported Levothyroxine (Levothyroxine Sodium) 100 Mcg Tab 100 Mcg PO DAILY Narrative Medication List of her home medications reviewed from the nursing note. Review of Systems Except as stated in HPI: all other systems reviewed are Neg Physical Exam Narrative GENERAL: Awake, alert, no obvious distress, anxious, anxious SKIN: Focused skin assessment warm/dry. HEAD: Atraumatic. Normocephalic. EYES: Pupils equal and round. No scleral icterus. No injection or drainage. ENT: No nasal bleeding or discharge. Mucous membranes pink and moist. NECK: Trachea midline. No JVD. CARDIOVASCULAR: Regular rate and rhythm. No murmur appreciated. RESPIRATORY: No accessory muscle use. Clear to auscultation. Breath sounds equal bilaterally. GASTROINTESTINAL: Abdomen soft, non-tender, nondistended. Hepatic and splenic margins not palpable. MUSCULOSKELETAL: No obvious deformities. No clubbing. No cyanosis. No edema. NEUROLOGICAL: Awake and alert. No obvious cranial nerve deficits. Motor grossly within normal limits. Normal speech. PSYCHIATRIC: Appropriate mood and affect; insight and judgment normal. Data Data Last Documented VS Vital Signs Date Time Temp Pulse Resp B/P Pulse Ox O2 Delivery O2 Flow Rate FiO2 05/06/17 17:14 68 16 168/70 98 05/06/17 16:39 Room Air 05/06/17 13:21 98.3 Orders Complete Blood Count With Diff (05/06/17 14:05) Basic Metabolic Panel (Bmp) (05/06/17 14:05) Ct Brain W/O Iv Contrast(Rout) (05/06/17 14:05) Ecg Monitoring (05/06/17 14:05) Iv Access Insert/Monitor (05/06/17 14:05) Oximetry (05/06/17 14:05) Sodium Chloride 0.9% Flush (Ns Flush) (05/06/17 14:15) Sodium Chlor 0.9% 1000 Ml Inj (Ns 1000 M (05/06/17 16:30) Labs Laboratory Tests Test 05/06/17 14:54 White Blood Count 8.3 TH/MM3 Red Blood Count 4.41 MIL/MM3 Hemoglobin 14.0 GM/DL Hematocrit 40.3 % Mean Corpuscular Volume 91.3 FL Mean Corpuscular Hemoglobin 31.7 PG Mean Corpuscular Hemoglobin 34.7 % Concent Red Cell Distribution Width 13.0 % Platelet Count 309 TH/MM3 Mean Platelet Volume 7.9 FL Neutrophils (%) (Auto) 52.7 % Lymphocytes (%) (Auto) 35.9 % Monocytes (%) (Auto) 9.6 % Eosinophils (%) (Auto) 1.2 % Basophils (%) (Auto) 0.6 % Neutrophils # (Auto) 4.4 TH/MM3 Lymphocytes # (Auto) 3.0 TH/MM3 Monocytes # (Auto) 0.8 TH/MM3 Eosinophils # (Auto) 0.1 TH/MM3 Basophils # (Auto) 0.1 TH/MM3 CBC Comment DIFF FINAL Differential Comment Sodium Level 137 MEQ/L Potassium Level 4.4 MEQ/L Chloride Level 99 MEQ/L Carbon Dioxide Level 27.9 MEQ/L Anion Gap 10 MEQ/L Blood Urea Nitrogen 29 MG/DL Creatinine 1.06 MG/DL Estimat Glomerular Filtration 53 ML/MIN Rate Random Glucose 107 MG/DL Calcium Level 9.3 MG/DL MDM Medical Decision Making Medical Screen Exam Complete: Yes Emergency Medical Condition: Yes Medical Record Reviewed: Yes Differential Diagnosis Intracranial hemorrhage, migraine headaches, vitreous detachment Narrative Course 3:51 PM patient had a head CT which was within normal limits. Blood test results are within normal limit. I have put a call out for the neurosurgeon Dr. Ochoa who is on for today. I intend to discharge the patient home unless he thinks otherwise. 4:18 PM I discussed with Dr. Ochoa's PA and the general consensus was to have her discharge home since there is no head bleed. I also discussed the case with Dr. Owen from ophthalmology and she is comfortable following up with her in her office tomorrow to rule out any vitreous detachment. Meanwhile blood test results came back and her BUN and creatinine is slightly high. I've ordered 1 L of IV fluid bolus and then patient will be discharged home. Procedures EKG Prior to Arrival: No Diagnosis Primary Impression: ocular migraine versus vitreous detachment Referrals: Kristen Owen MD Additional Instructions: Please follow-up with the merchandising lead was name and number been provided to you on this paperwork. Please return to the ER if the condition worsens or any other new concerns. Disposition: 01 DISCHARGE HOME Condition: Stable Jose Nelson MD May 06, 2017 13:59
[2017-05-06] MEDS ORDERED: SODIUM CHLORIDE 0.9% FLUSH 10 ML FLUSH IVF PRN (14:15)
--- NOTE | 2017-05-06 14:30 | RADRPT ---
EXAM DATE/TIME: 05/06/2017 14:20 [place] COMPARISON: CT BRAIN W/O CONTRAST, April 26, 2017, 12:40. INDICATIONS : Dizziness with bilateral vision problems. RADIATION DOSE: 34.33 CTDIvol (mGy) MEDICAL HISTORY : Hypertension. SURGICAL HISTORY : Cholecystectomy. ENCOUNTER: Initial ACUITY: 1 day PAIN SCALE: 2/10 LOCATION: Bilateral cranial TECHNIQUE: Multiple contiguous axial images were obtained of the head. Using automated exposure control and adj ustment of the mA and/or kV according to patient size, radiation dose was kept as low as reasonably a chievable to obtain optimal diagnostic quality images. DICOM format image data is available electro nically for review and comparison. FINDINGS: CEREBRUM: The ventricles are normal for age. No evidence of midline shift, mass lesion, hemorrhage or acute in farction. No extra-axial fluid collections are seen. POSTERIOR FOSSA: The cerebellum and brainstem are intact. The 4th ventricle is midline. The cerebellopontine angle i s unremarkable. EXTRACRANIAL: The visualized portion of the orbits is intact. SKULL: The calvaria is intact. No evidence of skull fracture. CONCLUSION: Normal examination. Eduar Bauer MD on May 06, 2017 at 14:29 Board Certified Radiologist. This report was verified electronically.
[2017-05-06 15:00] VITALS: PULSE 65
[2017-05-06 15:38] LABS: AUTOMATED NEUTROPHIL # 4.4 TH/MM3 (1.8-7.7); BASOPHIL # 0.1 TH/MM3 (0-0.2); BASOPHIL % 0.6 % (0.0-2.0); EOSINOPHIL # 0.1 TH/MM3 (0-0.4); EOSINOPHIL % 1.2 % (0.0-4.0); HEMATOCRIT 40.3 % (35.0-46.0); HEMO FLAGS DIFF FINAL; LYMPH % 35.9 % (9.0-44.0); MEAN CELL VOLUME 91.3 FL (80.0-100.0); MEAN CORPUSCULAR HEMOGLOBIN 31.7 PG (27.0-34.0); MEAN CORPUSCULAR HGB CONC 34.7 % (32.0-36.0); MONO % 9.6 % (0.0-8.0); NEUT % 52.7 % (16.0-70.0); PLATELET COUNT 309 TH/MM3 (150-450); RED BLOOD COUNT 4.41 MIL/MM3 (4.00-5.30); WHITE BLOOD COUNT 8.3 TH/MM3 (4.0-11.0)
[2017-05-06 16:15] LABS: BICARBONATE 27.9 MEQ/L (21.0-32.0); POTASSIUM 4.4 MEQ/L (3.5-5.1)
[2017-05-06] MEDS ORDERED: SODIUM CHLOR 0.9% 1000 ML INJ 1,000 ML IV ONE (16:30)
[2017-05-06 16:39] VITALS: BP 106/59; PULSE 68; RESP 16; O2SAT 99
[2017-05-06 17:14] VITALS: BP 168/70
== END 2017-05-06 17:25 | disposition home or self-care (01) ==
LOC: NEPE 13:19
DX: R51 Headache (principal); I10 Essential (primary) hypertension; Z86.73 Personal history of transient ischemic attack (TIA), and cerebral infarction without residual deficits; Z79.899 Other long term (current) drug therapy
CPT/HCPCS: 70450; 80048; 85025; 99284; J7030